=== PATIENT | female | born 1975 | race Caucasian/White ===

== ENCOUNTER → 2016-12-21 | Outpatient (CLI) | payer BC ==
[~2016-12-21] MED LIST: CETI10TA84 PO; CHOL1000 PO; COLC0.6T54 PO; DIPH38TA PO; IBUP-1050 PO; IND/25 PO; OMEP20CA9 PO; PRLSR20 PO; PROM25TA9 PO; VITA100C2 PO; VITA400C3 PO; ZNTT/150 PO
--- NOTE | 2016-12-21 08:21 | DIAGNOSTIC IMAGING REPORT ---
RIGHT HIP 2 VIEWS HISTORY: Right hip pain. COMPARISON: None. FINDINGS: There is no fracture or dislocation. Soft tissues are unremarkable. The visualized pelvic bones are intact. There is lumbar sacral posterior fusion. Spaces are maintained. IMPRESSION: No fractures. Electronically signed by: Eric Lao M.D. 12/21/2016 8:20 AM Dictated Date/Time: 12/21/2016 8:13 AM
== END | disposition home or self-care (01) ==
LOC: C.RAD 07:41
PROVIDERS: ATTEND Family Medicine
DX: M70.61 Trochanteric bursitis, right hip (principal); M25.559 Pain in unspecified hip

== ENCOUNTER 2017-01-29 22:37 | Emergency (ER) | payer BC ==
[~2017-01-29] VITALS: Ht 157.5 cm; Wt 104.4 kg
[~2017-01-29 22:37] MED LIST changes: -CHOL1000 PO; -COLC0.6T54 PO; -DIPH38TA PO; -IBUP-1050 PO; -IND/25 PO; -OMEP20CA9 PO; -PRLSR20 PO; -PROM25TA9 PO; -VITA100C2 PO; -VITA400C3 PO; -ZNTT/150 PO
[2017-01-29 22:44] VITALS: TEMP 36.8; Ht 157.5 cm; Wt 104.4 kg
[2017-01-29] MEDS ORDERED: DIPH38TA PO (23:33)
[2017-01-29] MEDS ORDERED: CHOL1000 PO (23:35)
[2017-01-29] MEDS ORDERED: VITA400C3 PO (23:35)
[2017-01-29] MEDS ORDERED: IBUP-1050 PO (23:36)
[2017-01-29] MEDS ORDERED: LORAZEPAM 2 MG/ML 1 ML VIAL IV STA (23:40)
[2017-01-29] MEDS ORDERED: LABETALOL HCL IV 5 MG/ML 20ML IV STA (23:40)
--- NOTE | 2017-01-29 23:52 | EMERGENCY ROOM VISIT NOTE ---
History Report prepared by Indu: José Miguel Joiner Under the Supervision of: Dr. Ad Naidu M.D. First contact with patient: 23:35 Chief Complaint: HYPERTENSION Stated Complaint: CP,HIGH BP LEFT 140/100, RT 150/96, DIZZY, NAUSEA History of Present Illness The patient is a 41 year old female who presents to the Emergency Room with complaints of persistent chest pains that began at 1800, 6 hours prior to arrival. The patient states that her chest pain intermittently radiates into her upper back. She claims that her pain is worsened with deep inspiration and laying flat. She is also currently complaining of high blood pressure, nausea, and dizziness. She denies any weakness of abdominal pain. The patient does not have a history of hypertension or cardiac disease. She has taken a dosage of Excedrin for her pain. She has had a prior cholecystectomy and hysterectomy. 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 A total of 10 systems reviewed and were otherwise negative. Past Medical & Surgical Medical Problems: (1) Endometriosis (2) GERD (gastroesophageal reflux disease) (3) IBS (irritable bowel syndrome) (4) Kidney stones (5) UTI (urinary tract infection) Surgical Problems: (1) Exploratory laparoscopy (2) History of cholecystectomy (3) History of hysterectomy (4) History of orthopedic surgery Family History FHx: diabetes FHx: heart disease FHx: hypertension Social History Smoking Status: Former Smoker Alcohol Use: none Drug Use: none Marital Status: Housing Status: lives with family Occupation Status: employed Current/Historical Medications Scheduled Cetirizine (Zyrtec), 10 MG PO DAILY Cholecalciferol (Vitamin D3), Unknown Dose PO DAILY Diphenhydramine-Acetaminophen (Excedrin Pm), 1 TAB PO DIRECTED Vitamin E (Vitamin E 400 Iu), 800 INTER.UNIT PO DAILY Scheduled PRN Ibuprofen (Advil), 200-600 MG PO Q4H PRN for Pain or Fever Allergies Coded Allergies: Acetaminophen (Verified Allergy, Unknown, HIVES, 01/29/17) Codeine (Verified Allergy, Unknown, HIVES, 01/29/17) Egg (Verified Allergy, Unknown, HIVES, 01/29/17) Morphine (Verified Allergy, Unknown, HIVES, 01/29/17) Ondansetron (Verified Allergy, Unknown, HIVES, 01/29/17) Oxycodone (Verified Allergy, Unknown, HIVES, 01/29/17) Tuberculin (Verified Allergy, Unknown, RASH, 01/29/17) Physical Exam Vital Signs Date Time Temp Pulse Resp B/P Pulse Ox O2 Delivery O2 Flow Rate FiO2 01/30/17 01:35 63 16 01/30/17 01:30 126/87 01/30/17 01:05 71 22 98 01/30/17 01:00 128/85 01/30/17 00:35 67 26 97 01/30/17 00:30 63 18 138/82 99 01/30/17 00:09 135/86 01/30/17 00:00 62 18 143/95 97 01/29/17 23:56 137/80 01/29/17 23:50 60 01/29/17 23:45 136/79 01/29/17 22:44 36.8 70 16 161/86 98 Room Air Physical Exam GENERAL: Patient is anxious appearing and in no minimal distress. HEENT: No acute trauma, normocephalic atraumatic, mucous membranes moist, no nasal congestion, no scleral icterus. NECK: No stridor, no adenopathy, no meningismus, trachea is midline. LUNGS: No dyspnea. Clear to auscultation and equal bilaterally. No wheeze, no rhonchi. HEART: Regular rate and rhythm. No murmurs, rubs, gallops appreciated. ABDOMEN: Soft, nontender, bowel sounds positive, no masses appreciated, no peritonitis. BACK: No midline tenderness, no CVA tenderness EXTREMITIES: Normal motion all extremities, no cyanosis, no edema. NEUROLOGIC: Alert and oriented, no acute motor or sensory deficits, no focal weakness, cranial nerves grossly intact. SKIN: No rash, no jaundice, no diaphoresis. Medical Decision & Procedures ER Provider Diagnostic Interpretation: CHEST X-RAY: X ray results are stated below per my interpretation: Chest: 1 view: No infiltrate, no effusion, normal cardiac border. Laboratory Results 01/29/17 23:25 01/29/17 23:25 01/30/17 00:46 Test 01/29/17 23:25 01/30/17 00:46 Red Blood Count 4.39 M/uL (4.2-5.4) Mean Corpuscular Volume 91.8 fL (80-100) Mean Corpuscular Hemoglobin 31.4 pg (25-34) Mean Corpuscular Hemoglobin Concent 34.2 g/dl (32-36) RDW Standard Deviation 43.3 fL (36.4-46.3) RDW Coefficient of Variation 12.7 % (11.5-14.5) Mean Platelet Volume 10.9 fL (7.4-10.4) Anion Gap 8.0 mmol/L (3-11) Est Creatinine Clear Calc Drug Dose 111.9 ml/min Estimated GFR () 114.8 Estimated GFR (Non- 99.0 BUN/Creatinine Ratio 20.5 (10-20) Calcium Level 8.7 mg/dl (8.5-10.1) Total Bilirubin 0.4 mg/dl (0.2-1) Alanine Aminotransferase (ALT/SGPT) 30 U/L (12-78) Alkaline Phosphatase 88 U/L (45-117) Creatine Kinase MB 1.2 ng/ml (0.5-3.6) Creatine Kinase MB Ratio (0-3.0) Troponin I < 0.015 ng/ml (0-0.045) Total Protein 7.4 gm/dl (6.4-8.2) Albumin 3.7 gm/dl (3.4-5.0) Globulin 3.7 gm/dl (2.5-4.0) Albumin/Globulin Ratio 1.0 (0.9-2) D-Dimer 380 ug/L FEU (0-500) Aspartate Amino Transf (AST/SGOT) 17 U/L (15-37) Total Creatine Kinase 70 U/L (26-192) Laboratory results as reviewed by me. Medications Administered Medications (Trade) Dose Ordered Sig/Ora Route Start Time Stop Time Status Last Admin Dose Admin Lorazepam (Ativan Inj) 0.5 mg NOW STAT IV 01/29/17 23:40 01/29/17 23:41 DC 01/29/17 23:59 0.5 MG ECG Indication: chest pain Rate (beats per minute): 56 Rhythm: sinus bradycardia Findings: no acute ischemic change, no ectopy ED Course 2336: The patient was evaluated in room B10. A complete history and physical exam was performed. 2340: Ordered Ativan 0.5 mg IV, Labetalol HCl 10 mg IV. 0011: I cancelled the Labetalol prescription at this time. 0135: Reevaluated the patient. Discussed results and discharge instructions. She is feeling much better at this time: she verbalized understanding and agreement. The patient is ready for discharge. Medical Decision Differential: Cardiac Ischemia (STEMI, NSTEMI, Unstable Angina, etc), Aortic Dissection, Arrhythmia, Pulmonary Embolism, Pneumonia, Pneumothorax, MSK, Infectious, Pericarditis/Myocarditis, Esophageal Rupture, Gastrointestinal, amongst other pathologies entertained. 41 yr old female arrives with complaint of left chest pain worse with inspiration and reported HTN at home. Initially HTN though on recheck no longer and thus labetalol cancelled. Ativan for mild anxiety regarding this with good result. EKG clear with negative trop. With ongoing symptoms > 6 hours and negative trop I do not feel this is ACS. With normal dimer I do not feel CT PE study indicated given PERC score. No evidence dissection. No evidence acute infectious etiology. Stable and looks well after several hours. Discharged to home with . Discussed RTED if worsening or other concerns. Stressed importance of PCP follow up to have further evaluation of HTN and symptoms. Impression Primary Impression: Hypertension Additional Impression: Left sided chest pain Scribe Attestation The scribe's documentation has been prepared under my direction and personally reviewed by me in its entirety. I confirm that the note above accurately reflects all work, treatment, procedures, and medical decision making performed by me. Departure Information Dispostion Home / Self-Care Referrals Salome Esquivel M.D. (PCP) Patient Instructions ED Chest Pain Atypical Unkn Cause, My [facility] Additional Instructions Your blood pressure was elevated during this visit. This is quite common in many people who are being evaluated in the Emergency Department for many reasons. However, it is important that you have your Primary Care Provider recheck your blood pressure and discuss whether treatment will be needed. FPC elevated blood pressure can lead to strokes, heart attacks, kidney failure amongst other medical issues. If you develop severe headaches, chest pain, weakness in arms or legs, or other concerning symptoms call 911. Problem Qualifiers Primary Impression: Hypertension Hypertension type: unspecified secondary hypertension Qualified Codes: I15.9 - Secondary hypertension, unspecified
[2017-01-29 23:55] LABS: HEMATOCRIT 40.3 % (37-47); MEAN CELL VOLUME 91.8 fL (80-100); MEAN CORPUSCULAR HEMOGLOBIN 31.4 pg (25-34); MEAN CORPUSCULAR HGB CONC 34.2 g/dl (32-36); MEAN PLATELET VOLUME 10.9 fL (7.4-10.4); PLATELET COUNT 263 K/uL (130-400); RED BLOOD COUNT 4.39 M/uL (4.2-5.4); WHITE BLOOD COUNT 8.92 K/uL (4.8-10.8)
[2017-01-30 00:21] LABS: ALT/SGPT 30 U/L (12-78); BLOOD UREA NITROGEN 15 mg/dl (7-18); BUN/CREATININE RATIO 20.5 (10-20); CALCIUM 8.7 mg/dl (8.5-10.1); CARBON DIOXIDE 20 mmol/L (21-32); CHLORIDE 111 mmol/L (98-107); CREATININE 0.75 mg/dl (0.60-1.20); GLUCOSE 86 mg/dl (70-99); SODIUM 139 mmol/L (136-145)
[2017-01-30 00:27] LABS: ALKALINE PHOSPHATASE 88 U/L (45-117)
[2017-01-30 01:05] VITALS: O2SAT 98
[2017-01-30 01:20] LABS: POTASSIUM 3.8 mmol/L (3.5-5.1)
[2017-01-30 01:30] VITALS: BP 126/87
[2017-01-30 01:35] VITALS: PULSE 63
--- NOTE | 2017-01-30 06:54 | DIAGNOSTIC IMAGING REPORT ---
CHEST ONE VIEW PORTABLE CLINICAL HISTORY: Chest pain/HTN pain COMPARISON STUDY: 02/25/2016 FINDINGS: The bones soft tissues and hemidiaphragms are normal. The cardiomediastinal silhouette is normal. The lungs are clear. The pulmonary vasculature is normal. IMPRESSION: Negative chest. Electronically signed by: Allan Barnes M.D. 01/30/2017 6:53 AM Dictated Date/Time: 01/30/2017 6:53 AM
[2017-04-10] MEDS ORDERED: PRLSR20 PO (08:25)
== END 2017-01-30 01:48 | disposition home or self-care (01) ==
LOC: C.EDB 22:40
DX: I15.9 Secondary hypertension, unspecified (principal); R07.9 Chest pain, unspecified; K21.9 Gastro-esophageal reflux disease without esophagitis; K58.9 Irritable bowel syndrome, unspecified; Z87.442 Personal history of urinary calculi; Z87.440 Personal history of urinary (tract) infections; N80.9 Endometriosis, unspecified; Z83.3 Family history of diabetes mellitus; Z82.49 Family history of ischemic heart disease and other diseases of the circulatory system; Z87.891 Personal history of nicotine dependence; Z79.899 Other long term (current) drug therapy

== ENCOUNTER 2017-03-14 08:36 | Emergency (ER) | payer BC ==
[~2017-03-14] VITALS: Ht 157.5 cm; Wt 103.0 kg
[~2017-03-14 08:36] MED LIST changes: -COLC0.6T54 PO; -IND/25 PO; -OMEP20CA9 PO; -PRLSR20 PO; -PROM25TA9 PO; -VITA100C2 PO; -ZNTT/150 PO
[2017-03-14 08:42] VITALS: O2SAT 98
[2017-03-14 08:43] VITALS: TEMP 36.6; Ht 157.5 cm; Wt 103.0 kg
[2017-03-14] MEDS ORDERED: SODIUM CHLORIDE 0.9% 1000ML 1,000 ML IV STA (08:58)
--- NOTE | 2017-03-14 09:06 | EMERGENCY ROOM VISIT NOTE ---
History First contact with patient: 08:43 Chief Complaint: CHEST PAIN Stated Complaint: CHEST AND ARM PAIN Nursing Triage Summary: Patient presents via wheelchair to the emergency department from radiology Patient was in radiology for an outpatient chest x-ray when she became dizzy and began having chest pain Patient states chest pain began January 29 and has flucuated in intensity since that date States she is taking colchicine for pericarditis (diagnosed by [facility]) and indomethacin She was evaluated by her PCP, Dr. Esquivel, yesterday for dizziness and SOB States chest pain is midsternal and radiates to left arm and back States she is having difficulty taking a deep breath History of Present Illness The patient is a 41 year old female who presents to the Emergency Room with complaints of chest pain. The patient states that her chest pain started at the beginning of last month. She was seen here and had a normal evaluation. She followed up with her family doctor and was diagnosed with pericarditis. She has been taking colchicine and indomethacin. She stated she was starting to feel better until the last several days. She reports nausea, dizziness, upper abdominal pain, chest pain worse with deep inspiration. She has had cholecystectomy in the past. The patient reports nausea. She denies any hematemesis, melena or hematochezia. She denies any diarrhea. She states her father had an NC at age 57. She had an outpatient echocardiogram done since the symptoms started January 29 which was negative. Review of Systems A 10 system review of systems was completed with positives and pertinent negatives listed in the HPI. Past Medical/Surgical History Medical Problems: (1) Endometriosis (2) GERD (gastroesophageal reflux disease) (3) IBS (irritable bowel syndrome) (4) Kidney stones (5) UTI (urinary tract infection) Surgical Problems: (1) Exploratory laparoscopy (2) History of cholecystectomy (3) History of hysterectomy (4) History of orthopedic surgery Family History FHx: diabetes FHx: heart disease FHx: hypertension Social History Smoking Status: Former Smoker Alcohol Use: none Drug Use: none Marital Status: Housing Status: lives with family Occupation Status: employed Current/Historical Medications Scheduled Cetirizine (Zyrtec), 10 MG PO DAILY Cholecalciferol (Vitamin D3), 1,000 UNITS PO DAILY Colchicine (Colchicine), 0.6 MG PO BID Diphenhydramine-Acetaminophen (Excedrin Pm), 1 TAB PO DIRECTED Indomethacin (Indocin), 25 MG PO TID Omeprazole (Prilosec), 20 MG PO BID Vitamin E (Vitamin E 100 Iu), 100 INTER.UNIT PO DAILY Scheduled PRN Ibuprofen (Advil), 200-600 MG PO Q4H PRN for Pain or Fever Allergies Coded Allergies: Codeine (Verified Allergy, Unknown, HIVES, 03/14/17) Egg (Verified Allergy, Unknown, HIVES, 03/14/17) Morphine (Verified Allergy, Unknown, HIVES, 03/14/17) Ondansetron (Verified Allergy, Unknown, HIVES, 03/14/17) Oxycodone (Verified Allergy, Unknown, HIVES, 03/14/17) Sulfamethoxazole w/Trimethoprim (Verified Allergy, Unknown, hives, 03/14/17 ) Tuberculin (Verified Allergy, Unknown, RASH, 03/14/17) Physical Exam Vital Signs Date Time Temp Pulse Resp B/P (MAP) Pulse Ox O2 Delivery O2 Flow Rate FiO2 03/14/17 14:42 67 16 123/82 100 03/14/17 13:12 80 140/93 100 Room Air 03/14/17 11:53 66 111/79 100 Room Air 03/14/17 11:26 60 16 123/73 100 Room Air 03/14/17 09:59 65 20 133/81 100 Room Air 03/14/17 08:52 58 03/14/17 08:45 Room Air 03/14/17 08:43 36.6 61 20 153/98 98 Room Air 03/14/17 08:42 98 Room Air Physical Exam VITALS: Vitals are noted on the nurse's note and reviewed by myself. Vital signs stable. GENERAL: This is a 41-year-old female, in no acute distress, nondiaphoretic, well-developed well-nourished. SKIN: The skin was without rashes, erythema, edema, or bruising. There is no tenting of the skin. Capillary reflex less than 2 seconds. HEAD: Normocephalic atraumatic. EARS: External auditory canals clear, tympanic membranes pearly yan without erythema or effusion bilaterally. EYES: Pupils equal round and reactive to light and accommodation. Conjunctivae without injection, sclerae without icterus. Extraocular movements intact. NOSE: Patent, turbinates without inflammation or discharge. MOUTH: Mucous membranes moist. Tonsils are not enlarged. Pharynx without erythema or exudate. Uvula midline. Airway patent. Tongue does not deviate. NECK: Supple without nuchal rigidity. No lymphadenopathy. No thyromegaly. Cervical spine is nontender. No JVD. HEART: Regular rate and rhythm without murmurs gallops or rubs. LUNGS: Clear to auscultation bilaterally without wheezes, rales or rhonchi. No retractions or accessory muscle use. ABDOMEN: Positive bowel sounds x 4. Soft, mild upper abdominal tenderness, without masses or organomegaly. MUSCULOSKELETAL: No muscle atrophy, erythema, or edema noted. Full range of motion in all extremities. Normal gait. Strength 5/5 throughout. NEURO: Patient was alert and oriented to person place and time. No focal neurological deficits. Medical Decision & Procedures ER Provider Diagnostic Interpretation: CHEST 2 VIEWS ROUTINE HISTORY: Short of breath. COMPARISON: Chest 01/29/2017. FINDINGS: The lungs are clear. Cardiac silhouette is normal in size. No pleural effusions. No pneumothorax. IMPRESSION: No acute process. Laboratory Results 03/14/17 08:55 Red Blood Count 4.59, Mean Corpuscular Volume 90.0, Mean Corpuscular Hemoglobin 29.6, Mean Corpuscular Hemoglobin Concent 32.9, Mean Platelet Volume 10.5, Neutrophils (%) (Auto) 54.2, Lymphocytes (%) (Auto) 26.7, Monocytes (%) (Auto) 9.7, Eosinophils (%) (Auto) 8.6, Basophils (%) (Auto) 0.5, Neutrophils # (Auto) 3.48, Lymphocytes # (Auto) 1.71, Monocytes # (Auto) 0.62, Eosinophils # (Auto) 0.55, Basophils # (Auto) 0.03 03/14/17 08:55 Test 03/14/17 00:00 03/14/17 08:55 03/14/17 10:30 Urine Color YELLOW Urine Appearance CLEAR (CLEAR) Urine pH 5.5 (4.5-7.5) Urine Specific [place] 1.010 (1.000-1.030) Urine Protein NEG (NEG) Urine Glucose (UA) NEG (NEG) Urine Ketones NEG (NEG) Urine Occult Blood NEG (NEG) Urine Nitrite NEG (NEG) Urine Bilirubin NEG (NEG) Urine Urobilinogen NEG (NEG) Urine Leukocyte Esterase NEG (NEG) White Blood Count 6.41 K/uL (4.8-10.8) Red Blood Count 4.59 M/uL (4.2-5.4) Hemoglobin 13.6 g/dL (12.0-16.0) Hematocrit 41.3 % (37-47) Mean Corpuscular Volume 90.0 fL (80-100) Mean Corpuscular Hemoglobin 29.6 pg (25-34) Mean Corpuscular Hemoglobin Concent 32.9 g/dl (32-36) Platelet Count 264 K/uL (130-400) Mean Platelet Volume 10.5 fL (7.4-10.4) Neutrophils (%) (Auto) 54.2 % Lymphocytes (%) (Auto) 26.7 % Monocytes (%) (Auto) 9.7 % Eosinophils (%) (Auto) 8.6 % Basophils (%) (Auto) 0.5 % Neutrophils # (Auto) 3.48 K/uL (1.4-6.5) Lymphocytes # (Auto) 1.71 K/uL (1.2-3.4) Monocytes # (Auto) 0.62 K/uL (0.11-0.59) Eosinophils # (Auto) 0.55 K/uL (0-0.5) Basophils # (Auto) 0.03 K/uL (0-0.2) RDW Standard Deviation 39.9 fL (36.4-46.3) RDW Coefficient of Variation 12.2 % (11.5-14.5) Immature Granulocyte % (Auto) 0.3 % Immature Granulocyte # (Auto) 0.02 K/uL (0.00-0.02) Erythrocyte Sedimentation Rate 2 mm/hr (0-21) Prothrombin Time 9.9 SECONDS (9.0-12.0) Prothromb Time International Ratio 0.9 (0.9-1.1) Activated Partial Thromboplast Time 24.0 SECONDS (21.0-31.0) Partial Thromboplastin Ratio 0.9 D-Dimer 210 ug/L FEU (0-500) Anion Gap 8.0 mmol/L (3-11) Est Creatinine Clear Calc Drug Dose 99.2 ml/min Estimated GFR () 100.1 Estimated GFR (Non- 86.3 BUN/Creatinine Ratio 17.3 (10-20) Calcium Level 9.0 mg/dl (8.5-10.1) Total Bilirubin 0.3 mg/dl (0.2-1) Aspartate Amino Transf (AST/SGOT) 21 U/L (15-37) Alanine Aminotransferase (ALT/SGPT) 41 U/L (12-78) Alkaline Phosphatase 77 U/L (45-117) Total Creatine Kinase 52 U/L (26-192) Creatine Kinase MB 1.0 ng/ml (0.5-3.6) Creatine Kinase MB Ratio 1.9 (0-3.0) C-Reactive Protein < 0.29 mg/dl (0-0.29) Total Protein 6.9 gm/dl (6.4-8.2) Albumin 3.7 gm/dl (3.4-5.0) Globulin 3.2 gm/dl (2.5-4.0) Albumin/Globulin Ratio 1.2 (0.9-2) Lipase 162 U/L (73-393) Troponin I < 0.015 ng/ml (0-0.045) Medications Administered Medications (Trade) Dose Ordered Sig/Ora Route Start Time Stop Time Status Last Admin Dose Admin Sodium Chloride 1,000 ml @ 999 mls/hr Q1H1M STAT IV 03/14/17 08:58 03/14/17 09:58 DC 03/14/17 09:06 999 MLS/HR Al Hydroxide/Mg Hydroxide (Maalox Susp) 30 ml STK-MED ONCE .ROUTE 03/14/17 14:07 03/14/17 14:08 DC 03/14/17 14:09 30 ML Lidocaine HCl (Viscous Lidocaine 2% Soln) 20 ml STK-MED ONCE .ROUTE 03/14/17 14:08 03/14/17 14:09 DC 03/14/17 14:10 20 ML Procedure The patient was monitored on a rim fire priming operator. They maintained a normal sinus rhythm without ectopy. ECG Indication: chest pain Rate (beats per minute): 62 Rhythm: normal sinus Findings: no acute ischemic change Change: no significant change ED Course The patient was seen and examined. Previous visits were reviewed. The patient does not have a fever or leukocytosis. She does not have any significant electrolyte abnormalities. She is not anemic. Sedimentation rate and CRP are not elevated. Initial and repeat 2 hour troponin were negative. ESR and sedimentation rate were not elevated. Lipase was not elevated. D-dimer was not elevated. Urinalysis was negative. Chest x-ray that was done just prior to arrival in the emergency department was negative The patient presents to the emergency department with 1.5 months of sharp chest pain. The patient has difficulty describing her chest pain. She states that it feels sharp and is often worse with deep inspiration. She states that she sleeps propped up with pillows because the pain seems to be more significant at night or when laying down. I do not hear a friction rub. Her EKG does not reveal any acute abnormality. Sedimentation rate and CRP are not elevated. She has been taking colchicine and indomethacin without any improvement in her pain. It is possible that this represents a gastritis or GERD or potentially pulmonary etiology and not truly pericarditis. There does seem to be an underlying component of anxiety as well. I initially discussed the case with Dr. Calvin. Given that the patient has had the more intense pain since yesterday morning and definitely worse since last night greater than 6 hours with 2 negative troponins, she underwent stress test. The patient was not able to complete the entire study. She became very short of breath and also very tearful. Dr. Calvin suggested having her follow with Dr. Moore who has been informally involved in the case through her PCP and possibly admitting her to the hospital. I spoke with the hospitalist service, Dr. Gutierrez who recommends speaking with Dr. Pack. I was able to speak with him and he recommends a follow-up with rheumatology to evaluate for possible underlying etiology prior to starting steroids if this does indeed seem to be refractory pericarditis. After discussion with the cardiologists and the hospitalist service, it is felt that the patient could continue with outpatient evaluation and management. The patient is very taking Prilosec. She states she stopped taking Zantac 2 days ago. This also seems to be when her pain worsened. She should start the Zantac again and take in addition to the Prilosec. She should return to the ER with any worsening symptoms. The case was discussed with Dr. Ramirez who agrees with the assessment and management plan. Medical Decision DIFFERENTIAL DIAGNOSIS: Aortic dissection, myocarditis, pericarditis, cervical disc disease, costochondritis, herpes zoster, rib fracture, pleuritis, pneumonia , pulmonary embolus, tension pneumothorax, anxiety disorder, somatoform disorder , choledocholithiasis, status, esophagitis, esophageal spasm, esophageal reflux , esophageal rupture, pancreatitis, peptic ulcer disease, cardiac ischemia, ST elevation NC, acute coronary syndrome, arrhythmia, coronary artery vasospasm. vavular heart disease, coronary artery disease, among others. Impression Primary Impression: Left sided chest pain Additional Impression: Upper abdominal pain Departure Information Dispostion Home / Self-Care Condition GOOD Referrals Salome Esquivel M.D. (PCP) Patient Instructions ED Chest Pain Costochondritis, ED Gastritis, My [facility] Additional Instructions Continue the Prilosec Also take Zantac 150 mg every 12 hours Follow-up with rheumatology as scheduled Follow-up with your family doctor in the next several days Follow-up with cardiology Return with any worsening pain, trouble breathing, fevers Problem Qualifiers
[2017-03-14 09:09] LABS: BASO % 0.5 %; BASO ABS # 0.03 K/uL (0-0.2); COMPLETE YES; EOS % 8.6 %; HEMATOCRIT 41.3 % (37-47); IG% 0.3 %; LYMPH % 26.7 %; LYMPH ABS # 1.71 K/uL (1.2-3.4); MEAN CORPUSCULAR HEMOGLOBIN 29.6 pg (25-34); MEAN CORPUSCULAR HGB CONC 32.9 g/dl (32-36); MEAN PLATELET VOLUME 10.5 fL (7.4-10.4); MONO % 9.7 %; NEUT % 54.2 %; PLATELET COUNT 264 K/uL (130-400); RED BLOOD COUNT 4.59 M/uL (4.2-5.4); WHITE BLOOD COUNT 6.41 K/uL (4.8-10.8)
[2017-03-14 09:25] LABS: ALT/SGPT 41 U/L (12-78); BLOOD UREA NITROGEN 15 mg/dl (7-18); BUN/CREATININE RATIO 17.3 (10-20); C-REACTIVE PROTEIN < 0.29 mg/dl (0-0.29); CARBON DIOXIDE 24 mmol/L (21-32); CHLORIDE 110 mmol/L (98-107); CREATININE 0.84 mg/dl (0.60-1.20); GLUCOSE 95 mg/dl (70-99); POTASSIUM 3.9 mmol/L (3.5-5.1); SODIUM 142 mmol/L (136-145)
[2017-03-14] MEDS ORDERED: VITA100C2 PO (09:25)
[2017-03-14] MEDS ORDERED: OMEP20CA9 PO (09:25)
[2017-03-14] MEDS ORDERED: IND/25 PO (09:25)
[2017-03-14] MEDS ORDERED: COLC0.6T54 PO (09:25)
[2017-03-14 09:28] LABS: INR 0.9 (0.9-1.1); PARTIAL THROMBOPLASTIN RATIO 0.9; PROTHROMBIN TIME (PATIENT) 9.9 SECONDS (9.0-12.0)
[2017-03-14 09:30] LABS: ALB/GLOB RATIO 1.2 (0.9-2); ALKALINE PHOSPHATASE 77 U/L (45-117); AST/SGOT 21 U/L (15-37); CKMB/CK RATIO 1.9 (0-3.0)
[2017-03-14 10:52] LABS: URINE APPEARANCE CLEAR (CLEAR); URINE BILIRUBIN NEG (NEG); URINE COLOR YELLOW; URINE NITRITE NEG (NEG); URINE PH 5.5 (4.5-7.5); UROBILINOGEN NEG (NEG); ZZUR CULT IF INDIC CLEAN CATCH NO
[2017-03-14 11:33] LABS: MANUAL MICROSCOPIC REQUIRED? NO; REVIEW REQ? NO
[2017-03-14] MEDS ORDERED: GI COCKTAIL PO STA (13:54)
--- NOTE | 2017-03-14 14:02 | EXERCISE STRESS ECHO ---
*NOTICE TO RECEIVING REPUBLICAN AGENCY This information is strictly Confidential and protected under [place] law. [place] law prohibits you from making any further disclosure of this information unless further disclosure is expressly permitted by the written consent of the person to whom it pertains or is authorized by law. A general authorization for the release of medical or other information is not sufficient for this purpose. Hospital accepts no responsibility if the information is made available to any other person, INCLUDING THE PATIENT. Interpretation Summary * Name: SOFIA SOLARES Study Date: 03/14/2017 11:54 AM BP: 140/81 mmHg * Patient Location: [facility] HR: 65 * : 1975 (M/d/yyyy) Gender: Female Height: 62 in * Age: 41 yrs Ethnicity: [place] Weight: 227 lb * Ordering Physician: Gita Sheikh * Referring Physician: Self, Referred * Performed By: Salome Leach RCS * * Reason For Study: CHEST PAIN * BSA: 2.0 m2 * -- Conclusions -- * Stress Echo: * 1. No inducible ischemic changes noted at 76% MPHR. Cannot rule out ischemic changes at faster heart rates. Target heart rate was not achieved. * 2. Nondiagnostic exercise ECG as target heart rate was not attained. * 3. Pleuritic chest pain was reported prior to the procedure and worsened with escalating exercise and heavier breathing. She asked to stop prior to reaching target heart rate. * 4. No arrhythmia. * 5. Appropriate blood pressure response to exercise. * 6. Poor exercise tolerance due to chest discomfort as described above. * ECHO: * 1. Normal left ventricular size and systolic function. EF 55-60%. No regional wall motion abnormalities. No left ventricular hypertrophy. * 2. Limited color and limited spectral Doppler also performed with limited 2D echo images. * 3. Normal estimated right ventricular systolic pressure, assuming a right atrial pressure of 3; RVSP 25mmHg. Procedure Details * ECHOEX, CPT #[id number] * Limited 2D images with limited color Doppler and limited spectral Doppler performed as well as stress echo images. Left Ventricle * The left ventricle is normal in size. * There is normal left ventricular wall thickness. * Left ventricular systolic function is normal. * The left ventricular ejection fraction increases normally with stress. The left ventricular end-systolic cavity size reduces post-stress (normal response). The left ventricular wall motion with stress is normal. * Resting wall motion: Normal. Stress wall motion: Appropriate increase in Left ventricular systolic function and decrease in cavity size. No stress induced segmental wall motion abnormalities. Right Ventricle * Right ventricle not fully visualized but may be mildly dilated. Atria * The left atrial size is normal. * Right atrial size is normal. Mitral Valve * The mitral valve is grossly normal. Tricuspid Valve * The tricuspid valve is not well visualized. Aortic Valve * The aortic valve is trileaflet. * The aortic valve is normal in structure and function. * No hemodynamically significant valvular aortic stenosis. * No aortic regurgitation is present. Pulmonic Valve * The pulmonic valve is not well visualized. Great Vessels * The aortic root is normal size. * Ascending aorta of normal dimension * Aortic arch of normal dimension. Pericardium * There is no pericardial effusion. Stress Parameters * Sinus bradycardia 59 bpm. * Stress ECG: No ST changes. No arrhythmias. * No arrhythmia were noted with stress. * The stress portion of this study was personally supervised by the undersigned interpreting physician. * Rest heart rate was '65' BPM. * Rest blood pressure was '140/81' * Maximum heart rate achieved was 137 bpm. * Maximum heart rate was 76 % of maximum age-predicted heart rate. * Maximum blood pressure was '160/78' * Total exercise time was '04:14' * Maximum exercise MET level achieved was '6.00' METS * Maximum treadmill speed was '2.50' miles per hour. * Maximum treadmill elevation was '12.00'% grade. * Exercise was stopped due to chest pain. * Normal blood pressure response to exercise. MMode 2D Measurements and Calculations IVSd 0.85 cm IVSs 1.3 cm LVIDd 4.5 cm LVIDs 3.2 cm LVPWd 0.99 cm LVPWs 1.7 cm IVS/LVPW 0.86 FS 29.0 % EDV(Teich) 93.3 ml ESV(Teich) 41.3 ml EF(Teich) 55.8 % EDV(cubed) 92.3 ml ESV(cubed) 33.1 ml EF(cubed) 64.2 % % IVS thick 51.5 % % LVPW thick 69.4 % LV mass(C)d 137.6 grams LV mass(C)dI 68.2 grams/m\S\2 LV mass(C)s 168.7 grams LV mass(C)sI 83.6 grams/m\S\2 SV(Teich) 52.1 ml SI(Teich) 25.8 ml/m\S\2 SV(cubed) 59.2 ml SI(cubed) 29.4 ml/m\S\2 Ao root diam 3.2 cm Ao root area 8.2 cm\S\2 LA dimension 3.4 cm asc Aorta Diam 3.1 cm LA/Ao 1.0 LVOT diam 2.0 cm LVOT area 3.1 cm\S\2 Doppler Measurements and Calculations LV V1 max PG 4.3 mmHg LV V1 max 103.5 cm/sec TR max burton 233.1 cm/sec
[2017-03-14] MEDS ORDERED: ALUMINUM/MAGNESIUM SUSP 30 ML UDC ONE (14:07)
[2017-03-14] MEDS ORDERED: LIDOCAINE HCL 2% VISC SOLN 20 ML UDC ONE (14:08)
[2017-03-14 14:42] VITALS: BP 123/82; PULSE 67; O2SAT 100
[2017-04-10] MEDS ORDERED: PRLSR20 PO (08:25)
== END 2017-03-14 14:43 | disposition home or self-care (01) ==
LOC: C.EDB 08:38 → C.EDA 14:43
DX: R07.9 Chest pain, unspecified (principal); R10.10 Upper abdominal pain, unspecified; R11.0 Nausea; K21.9 Gastro-esophageal reflux disease without esophagitis; I25.2 Old myocardial infarction; Z87.442 Personal history of urinary calculi; Z87.440 Personal history of urinary (tract) infections; Z90.49 Acquired absence of other specified parts of digestive tract; Z90.710 Acquired absence of both cervix and uterus; Z98.890 Other specified postprocedural states; Z79.899 Other long term (current) drug therapy

== ENCOUNTER → 2017-03-14 | Outpatient (CLI) | payer BC ==
[~2017-03-14] MED LIST changes: +CHOL1000 PO; +COLC0.6T54 PO; +DIPH38TA PO; +IBUP-1050 PO; +IND/25 PO; +OMEP20CA9 PO; +PRLSR20 PO; +PROM25TA9 PO; +VITA100C2 PO; +VITA400C3 PO; +ZNTT/150 PO
--- NOTE | 2017-03-14 08:43 | DIAGNOSTIC IMAGING REPORT ---
CHEST 2 VIEWS ROUTINE HISTORY: Short of breath. COMPARISON: Chest 01/29/2017. FINDINGS: The lungs are clear. Cardiac silhouette is normal in size. No pleural effusions. No pneumothorax. IMPRESSION: No acute process. Electronically signed by: Eric Lao M.D. 03/14/2017 8:42 AM Dictated Date/Time: 03/14/2017 8:39 AM
== END | disposition home or self-care (01) ==
LOC: C.RAD 08:12
PROVIDERS: ATTEND Physician Assistant
DX: R07.81 Pleurodynia (principal); R06.02 Shortness of breath

== ENCOUNTER → 2017-03-31 | Outpatient (CLI) | payer BC ==
[~2017-03-31] MED LIST changes: +COLC0.6T54 PO; +IND/25 PO; +OMEP20CA9 PO; +PRLSR20 PO; +PROM25TA9 PO; +VITA100C2 PO; -VITA400C3 PO; +ZNTT/150 PO
--- NOTE | 2017-03-31 11:21 | DIAGNOSTIC IMAGING REPORT ---
CHEST 2 VIEWS ROUTINE CLINICAL HISTORY: Chest pain, cough and fever. COMPARISON STUDY: Chest radiograph March 14, 2017. FINDINGS: Lung volumes are normal. There is no pneumothorax or pleural effusion. Lungs are clear. Cardiac size is within normal limits. There is no evidence of pulmonary edema. There are cholecystectomy clips. The appearance of the chest is unchanged. IMPRESSION: No acute cardiopulmonary findings. Electronically signed by: Fredrick Shearer M.D. 03/31/2017 11:20 AM Dictated Date/Time: 03/31/2017 11:19 AM
[2017-03-31 11:36] LABS: BASO % 0.1 %; BASO ABS # 0.02 K/uL (0-0.2); COMPLETE YES; EOS % 0.2 %; HEMATOCRIT 45.1 % (37-47); IG% 0.4 %; LYMPH % 16.7 %; LYMPH ABS # 2.85 K/uL (1.2-3.4); MEAN CELL VOLUME 93.8 fL (80-100); MEAN CORPUSCULAR HEMOGLOBIN 31.2 pg (25-34); MEAN CORPUSCULAR HGB CONC 33.3 g/dl (32-36); MEAN PLATELET VOLUME 10.8 fL (7.4-10.4); NEUT % 76.6 %; PLATELET COUNT 273 K/uL (130-400); RED BLOOD COUNT 4.81 M/uL (4.2-5.4); WHITE BLOOD COUNT 17.04 K/uL (4.8-10.8)
== END | disposition home or self-care (01) ==
LOC: C.RAD 10:25
PROVIDERS: ATTEND Family Medicine
DX: R59.0 Localized enlarged lymph nodes (principal); Z11.4 Encounter for screening for human immunodeficiency virus [HIV]

== ENCOUNTER → 2017-04-01 | Outpatient (CLI) | payer BC ==
[2017-04-01 13:52] LABS: ALB/GLOB RATIO 1.1 (0.9-2); ALKALINE PHOSPHATASE 85 U/L (45-117); ALT/SGPT 43 U/L (12-78); AST/SGOT 16 U/L (15-37); BLOOD UREA NITROGEN 13 mg/dl (7-18); BUN/CREATININE RATIO 16.7 (10-20); C-REACTIVE PROTEIN < 0.29 mg/dl (0-0.29); CARBON DIOXIDE 23 mmol/L (21-32); CHLORIDE 107 mmol/L (98-107); CREATININE 0.79 mg/dl (0.60-1.20); GLUCOSE 103 mg/dl (70-99); POTASSIUM 4.1 mmol/L (3.5-5.1); SODIUM 139 mmol/L (136-145)
--- NOTE | 2017-04-01 13:52 | DIAGNOSTIC IMAGING REPORT ---
CT SCAN OF THE ABDOMEN AND PELVIS WITHOUT IV CONTRAST CLINICAL HISTORY: Nausea. Generalized abdominal pain. COMPARISON STUDY: Abdominal CT dated 07/24/2015. TECHNIQUE: CT scan of the abdomen and pelvis is performed from the lung bases to the proximal femora. Images are reviewed in the axial, sagittal, and coronal planes. IV contrast was not administered for this examination as per the referring clinician. Note that the examination was performed in significantly suboptimal fashion without oral and IV contrast. Automated dose control exposure was utilized. CT DOSE: 1136.25 mGy.cm FINDINGS: Lung bases: The heart is normal in size and without pericardial effusion. The lung bases are clear noting minimal dependent atelectasis. Liver: The unenhanced liver is normal in size, contour, and attenuation. There is no intrahepatic biliary ductal dilatation. Gallbladder: Surgically absent noting clips in the gallbladder fossa. Spleen: Normal in size and attenuation. Pancreas: Unremarkable. Adrenal glands: Unremarkable. Kidneys: The unenhanced kidneys are normal in size and without hydronephrosis. There are no renal calculi identified. There is no evidence of contour deforming renal mass lesion. Abdominal vasculature: The abdominal aorta is normal in course and caliber. Bowel: The small bowel and colon are normal in course and caliber. The appendix is well-visualized and normal. Peritoneum: There is no intraperitoneal free air or abdominal ascites. Lymphadenopathy: None. Pelvic viscera: The bladder is normal as visualized. The uterus is surgically absent. No adnexal lesion is seen. Small ovarian follicles are incidentally noted. Skeletal structures: No lytic or blastic lesions are seen. There are postoperative changes from L4 to S1 spinal fusion. IMPRESSION: 1. Suboptimal examination without oral and IV contrast. 2. There are no acute infectious or inflammatory findings in the abdomen or pelvis. Electronically signed by: Alverto Villela M.D. 04/01/2017 1:51 PM Dictated Date/Time: 04/01/2017 1:46 PM
== END | disposition home or self-care (01) ==
LOC: C.CTS 12:34
PROVIDERS: ATTEND Family Medicine
DX: R10.9 Unspecified abdominal pain (principal); R11.0 Nausea; R50.9 Fever, unspecified

== ENCOUNTER 2017-04-02 09:43 | Emergency (ER) | payer BC ==
[~2017-04-02] VITALS: Ht 157.5 cm; Wt 99.8 kg
[~2017-04-02 09:43] MED LIST changes: -PRLSR20 PO; -PROM25TA9 PO; -ZNTT/150 PO
[2017-04-02 09:49] VITALS: TEMP 36.8; Ht 157.5 cm; Wt 99.8 kg
[2017-04-02] MEDS ORDERED: ZNTT/150 PO (10:28)
[2017-04-02] MEDS ORDERED: SODIUM CHLORIDE 0.9% 1000ML 1,000 ML IV STA ×2 (10:45)
[2017-04-02] MEDS ORDERED: HYDROmorphone INJ 1 MG/ML SYR IV STA (11:12)
[2017-04-02] MEDS ORDERED: PROMETHAZINE HCL INJ 12.5 MG in SODIUM CHLORIDE 0.9% 50ML 50 ML IV STA (11:12)
[2017-04-02 11:18] LABS: BASO % 0.1 %; BASO ABS # 0.01 K/uL (0-0.2); COMPLETE YES; EOS % 0.3 %; HEMATOCRIT 43.6 % (37-47); IG% 0.5 %; LYMPH % 14.3 %; LYMPH ABS # 1.42 K/uL (1.2-3.4); MEAN CELL VOLUME 92.6 fL (80-100); MEAN CORPUSCULAR HEMOGLOBIN 30.4 pg (25-34); MEAN CORPUSCULAR HGB CONC 32.8 g/dl (32-36); MEAN PLATELET VOLUME 10.2 fL (7.4-10.4); NEUT % 80.8 %; PLATELET COUNT 261 K/uL (130-400); RED BLOOD COUNT 4.71 M/uL (4.2-5.4); WHITE BLOOD COUNT 9.92 K/uL (4.8-10.8)
[2017-04-02 11:21] LABS: URINE APPEARANCE CLEAR (CLEAR); URINE BILIRUBIN NEG (NEG); URINE COLOR YELLOW; URINE NITRITE NEG (NEG); URINE SPECIFIC GRAVITY 1.012 (1.000-1.030); UROBILINOGEN NEG (NEG)
[2017-04-02 11:29] LABS: MANUAL MICROSCOPIC REQUIRED? NO; REVIEW REQ? NO
[2017-04-02 11:33] LABS: BUN/CREATININE RATIO 10.4 (10-20); CREATININE 0.88 mg/dl (0.60-1.20); POTASSIUM 3.7 mmol/L (3.5-5.1)
[2017-04-02] MEDS ORDERED: OPTIRAY 320 IV PRN (13:15)
--- NOTE | 2017-04-02 13:15 | DIAGNOSTIC IMAGING REPORT ---
CT ABD/PELVIS IV CONTRAST ONLY CLINICAL HISTORY: RIGHT ABD PAIN, FEVERS COMPARISON STUDY: 04/01/2017 TECHNIQUE: Following the IV administration of 91 mL of Optiray-320, CT scan of the abdomen and pelvis was performed from the lung bases to the proximal femurs. Images are reviewed in the axial, sagittal, and coronal planes. IV contrast was administered without complication. CT DOSE: 1029.23 mGy.cm FINDINGS: Lower chest: The heart is normal in size and configuration, without pericardial effusion. The lung bases and pleural spaces are clear. Liver: The contrast-enhanced liver is normal in size, contour, and attenuation. There is no intrahepatic biliary ductal dilatation. The hepatic veins and portal veins are patent. The common bile duct measures 9 mm. Gallbladder: Surgically absent Spleen: Normal in size and attenuation. Pancreas: Unremarkable. Adrenal glands: Unremarkable. Kidneys: There is a 7 mm left renal hypodensity likely representing a cyst. Bowel: There are no transition zone to indicate bowel obstruction. There is no evidence of acute diverticulitis. There are no findings to indicate acute appendicitis. There is borderline bowel wall thickening involving the descending colon Peritoneum: There is no intraperitoneal free air or abdominal ascites. Vasculature: The abdominal aorta is normal in course and caliber. Adenopathy: None. Pelvic viscera: The patient is status post a prior hysterectomy. Skeletal structures: There are postsurgical changes present within the lumbar spine IMPRESSION: 1. No evidence of bowel obstruction. No evidence of free air 2. No evidence of acute diverticulitis. No evidence of acute appendicitis 3. Surgically absent gallbladder and uterus 4. Postsurgical changes involving the lumbar spine 5. Borderline bowel wall thickening involving the descending colon Electronically signed by: Biju Ignacio M.D. 04/02/2017 1:13 PM Dictated Date/Time: 04/02/2017 1:06 PM
[2017-04-02] MEDS ORDERED: PROM25TA9 PO (14:15)
--- NOTE | 2017-04-02 14:16 | EMERGENCY ROOM VISIT NOTE ---
History First contact with patient: 10:17 Chief Complaint: REFERRED BY DOCTOR Stated Complaint: ABD PAIN, CP, FEVER, ROBLES, WBC-SENT BY DR. SANCHES History of Present Illness Patient is a 41-year-old white female who presents to the emergency department for evaluation of abdominal pain and fever. Patient was seen at the walk-in clinic at [facility] over the weekend for similar symptoms. Patient reports that she developed a intermittent fever, low grade over the last week. Temperature max was 100.8F orally, and responded to acetaminophen. She also noted nausea without vomiting, anorexia, and in her life fatigue and weakness. She developed right-sided abdominal pain 2 days ago. She states this started in the right upper abdomen, and she now feels it more in the right mid abdomen radiating toward the umbilicus and epigastric region. She describes it as an aching sensation and can occasionally be, sharp. She reports that standing makes her pain better. She has a history of IBS, and was feeling a little bit constipated so 8 prunes, and subsequently had 3 loose bowel movements yesterday and 2 today. She denies any melena or hematochezia. Historically, the patient also has a history of pericarditis, and has been on prednisone and colchicine for about 2-1/2 weeks. She reports that her chest pain symptoms are improving. She was seen at the weekend clinic 2 days ago, and had laboratory studies and a CT scan performed. Her white count was elevated at over 17,000, however a CT scan was performed yesterday and was negative. Given the leukocytosis, she was referred to the emergency department for further care and evaluation. The patient is also status post cholecystectomy, and hysterectomy with right salpingo-oophorectomy. Review of Systems Review of systems as per HPI. All other systems reviewed were negative. 10 systems reviewed. Past Medical/Surgical History Medical Problems: (1) Acute abdominal pain (2) Acute abdominal pain (3) Acute abdominal pain (4) Diarrhea (5) Endometriosis (6) Essential (Primary) Hypertension (7) GERD (gastroesophageal reflux disease) (8) Hypertension (9) IBS (irritable bowel syndrome) (10) Kidney stones (11) Left sided chest pain (12) Left sided chest pain (13) Lower abdominal pain (14) Lumbar disc herniation with radiculopathy (15) Lumbar stenosis with neurogenic claudication (16) Mastitis in female (17) Pericarditis (18) Right-sided chest wall pain (19) Upper abdominal pain (20) UTI (urinary tract infection) (21) Vomiting Surgical Problems: (1) Exploratory laparoscopy (2) History of cholecystectomy (3) History of hysterectomy (4) History of orthopedic surgery Electronic medical records are reviewed and summarized as above/below. See Problem List. Family History FHx: diabetes FHx: heart disease FHx: hypertension Social History Smoking Status: Former Smoker Alcohol Use: none Drug Use: none Marital Status: Housing Status: lives with family Occupation Status: employed Current/Historical Medications Scheduled Cetirizine (Zyrtec), 10 MG PO DAILY Cholecalciferol (Vitamin D3), 1,000 UNITS PO DAILY Colchicine (Colchicine), 0.6 MG PO BID Diphenhydramine-Acetaminophen (Excedrin Pm), 1 TAB PO DIRECTED Ranitidine (Zantac), 150 MG PO BID Vitamin E (Vitamin E 100 Iu), 100 INTER.UNIT PO DAILY Scheduled PRN Promethazine Hcl (Phenergan), 25 MG PO Q6H PRN for Nausea Allergies Coded Allergies: Codeine (Verified Allergy, Unknown, HIVES, 03/14/17) Egg (Verified Allergy, Unknown, HIVES, 03/14/17) Morphine (Verified Allergy, Unknown, HIVES, 03/14/17) Ondansetron (Verified Allergy, Unknown, HIVES, 03/14/17) Oxycodone (Verified Allergy, Unknown, HIVES, 03/14/17) Sulfamethoxazole w/Trimethoprim (Verified Allergy, Unknown, hives, 03/14/17 ) Tuberculin (Verified Allergy, Unknown, RASH, 03/14/17) Physical Exam Vital Signs Date Time Temp Pulse Resp B/P (MAP) Pulse Ox O2 Delivery O2 Flow Rate FiO2 04/02/17 14:51 59 114/85 94 04/02/17 12:30 82 134/83 94 04/02/17 11:36 79 125/81 98 Room Air 04/02/17 09:49 36.8 70 18 135/93 98 Room Air Physical Exam CONSTITUTIONAL: Patient is an obese, uncomfortable appearing 41-year-old white female who is awake and alert and in mild distress due to her abdominal pain. EYES: Pupils equal, round, reactive to light and accommodation. EOMs intact without nystagmus. Sclera are anicteric. ENT: Tympanic membranes intact, with normal landmarks. External canals are clear. Oral and nasopharynx are clear. Mucous membranes are moist, no lesions , tongue and gums appear normal. NECK: No bruits auscultated. Supple without lymphadenopathy. No thyromegaly. No meningeal signs. Full active range of motion without discomfort. CARDIOVASCULAR: Regular rate and rhythm, with normal S1 and S2, no murmur or gallop or rub is heard. No carotid bruits auscultated. No JVD. Peripheral pulses easily palpable. RESPIRATORY: Breath sounds equal and clear to auscultation without wheezes, rales, or rhonchi heard. Full and equal chest expansion without accessory muscle use or retractions. ABDOMEN: Well-healed surgical scars are noted. Abdomen is soft, nondistended, tender to palpation in the right mid abdomen, without guarding or rigidity. She does have some rebound and referred rebound tenderness however. INTEGUMENTARY: No lesions or rash, normal skin turgor. LYMPH: No lymphadenopathy. Medical Decision & Procedures ER Provider Diagnostic Interpretation: CT ABD/PELVIS IV CONTRAST ONLY CLINICAL HISTORY: RIGHT ABD PAIN, FEVERS COMPARISON STUDY: 04/01/2017 TECHNIQUE: Following the IV administration of 91 mL of Optiray-320, CT scan of the abdomen and pelvis was performed from the lung bases to the proximal femurs. Images are reviewed in the axial, sagittal, and coronal planes. IV contrast was administered without complication. CT DOSE: 1029.23 mGy.cm FINDINGS: Lower chest: The heart is normal in size and configuration, without pericardial effusion. The lung bases and pleural spaces are clear. Liver: The contrast-enhanced liver is normal in size, contour, and attenuation. There is no intrahepatic biliary ductal dilatation. The hepatic veins and portal veins are patent. The common bile duct measures 9 mm. Gallbladder: Surgically absent Spleen: Normal in size and attenuation. Pancreas: Unremarkable. Adrenal glands: Unremarkable. Kidneys: There is a 7 mm left renal hypodensity likely representing a cyst. Bowel: There are no transition zone to indicate bowel obstruction. There is no evidence of acute diverticulitis. There are no findings to indicate acute appendicitis. There is borderline bowel wall thickening involving the descending colon Peritoneum: There is no intraperitoneal free air or abdominal ascites. Vasculature: The abdominal aorta is normal in course and caliber. Adenopathy: None. Pelvic viscera: The patient is status post a prior hysterectomy. Skeletal structures: There are postsurgical changes present within the lumbar spine IMPRESSION: 1. No evidence of bowel obstruction. No evidence of free air 2. No evidence of acute diverticulitis. No evidence of acute appendicitis 3. Surgically absent gallbladder and uterus 4. Postsurgical changes involving the lumbar spine 5. Borderline bowel wall thickening involving the descending colon Laboratory Results 04/02/17 11:05 Red Blood Count 4.71, Mean Corpuscular Volume 92.6, Mean Corpuscular Hemoglobin 30.4, Mean Corpuscular Hemoglobin Concent 32.8, Mean Platelet Volume 10.2, Neutrophils (%) (Auto) 80.8, Lymphocytes (%) (Auto) 14.3, Monocytes (%) (Auto) 4.0, Eosinophils (%) (Auto) 0.3, Basophils (%) (Auto) 0.1, Neutrophils # (Auto) 8.01, Lymphocytes # (Auto) 1.42, Monocytes # (Auto) 0.40, Eosinophils # (Auto) 0.03, Basophils # (Auto) 0.01 04/02/17 11:05 Test 04/02/17 11:04 04/02/17 11:05 Urine Color YELLOW Urine Appearance CLEAR (CLEAR) Urine pH 5.0 (4.5-7.5) Urine Specific [place] 1.012 (1.000-1.030) Urine Protein NEG (NEG) Urine Glucose (UA) NEG (NEG) Urine Ketones NEG (NEG) Urine Occult Blood NEG (NEG) Urine Nitrite NEG (NEG) Urine Bilirubin NEG (NEG) Urine Urobilinogen NEG (NEG) Urine Leukocyte Esterase NEG (NEG) White Blood Count 9.92 K/uL (4.8-10.8) Red Blood Count 4.71 M/uL (4.2-5.4) Hemoglobin 14.3 g/dL (12.0-16.0) Hematocrit 43.6 % (37-47) Mean Corpuscular Volume 92.6 fL (80-100) Mean Corpuscular Hemoglobin 30.4 pg (25-34) Mean Corpuscular Hemoglobin Concent 32.8 g/dl (32-36) Platelet Count 261 K/uL (130-400) Mean Platelet Volume 10.2 fL (7.4-10.4) Neutrophils (%) (Auto) 80.8 % Lymphocytes (%) (Auto) 14.3 % Monocytes (%) (Auto) 4.0 % Eosinophils (%) (Auto) 0.3 % Basophils (%) (Auto) 0.1 % Neutrophils # (Auto) 8.01 K/uL (1.4-6.5) Lymphocytes # (Auto) 1.42 K/uL (1.2-3.4) Monocytes # (Auto) 0.40 K/uL (0.11-0.59) Eosinophils # (Auto) 0.03 K/uL (0-0.5) Basophils # (Auto) 0.01 K/uL (0-0.2) RDW Standard Deviation 45.5 fL (36.4-46.3) RDW Coefficient of Variation 13.3 % (11.5-14.5) Immature Granulocyte % (Auto) 0.5 % Immature Granulocyte # (Auto) 0.05 K/uL (0.00-0.02) Anion Gap 8.0 mmol/L (3-11) Est Creatinine Clear Calc Drug Dose 93.0 ml/min Estimated GFR () 94.6 Estimated GFR (Non- 81.6 BUN/Creatinine Ratio 10.4 (10-20) Calcium Level 9.0 mg/dl (8.5-10.1) Total Bilirubin 0.5 mg/dl (0.2-1) Direct Bilirubin 0.1 mg/dl (0-0.2) Aspartate Amino Transf (AST/SGOT) 14 U/L (15-37) Alanine Aminotransferase (ALT/SGPT) 34 U/L (12-78) Alkaline Phosphatase 77 U/L (45-117) Total Protein 7.0 gm/dl (6.4-8.2) Albumin 3.7 gm/dl (3.4-5.0) Amylase Level 39 U/L (25-115) Lipase 168 U/L (73-393) Medications Administered Medications (Trade) Dose Ordered Sig/Ora Route Start Time Stop Time Status Last Admin Dose Admin Sodium Chloride 1,000 ml @ 999 mls/hr Q1H1M STAT IV 04/02/17 10:45 04/02/17 11:45 DC 04/02/17 11:10 999 MLS/HR Sodium Chloride 1,000 ml @ 250 mls/hr Q4H STAT IV 04/02/17 10:45 04/02/17 14:44 DC 04/02/17 11:34 250 MLS/HR Promethazine HCl 12.5 mg/Sodium Chloride 50.5 ml @ 204 mls/hr NOW STAT IV 04/02/17 11:12 04/02/17 11:26 DC 04/02/17 11:33 204 MLS/HR Hydromorphone HCl (Dilaudid Inj) 1 mg NOW STAT IV 04/02/17 11:12 04/02/17 11:13 DC 04/02/17 11:32 1 MG ED Course The patient was seen and assessed as above. Old records were reviewed, including her outpatient laboratory studies and CT scan from the last 2 days. IV lock was initiated. She was hydrated with normal saline solution and medicated with Phenergan and Dilaudid IV with good relief of her symptoms. Urinalysis, urine test, CBC, BMP, LFTs, amylase and lipase were drawn. Laboratory studies today noted a normal white count at 9900, slight left shift noted. H&H is normal. Electrolytes are within normal limits. Liver functions and renal functions are normal, pancreatic markers are not elevated and urinalysis was completely clear. All laboratory studies were reviewed with the patient. The event her persistent right-sided abdominal pain however, CT scan of the abdomen and pelvis with IV contrast was obtained. There is no evidence for infectious or inflammatory findings in the abdomen. The patient was reassured. Conservative care measures were discussed. She was encouraged to follow a clear liquid diet , and was given a prescription for Phenergan to use as needed for nausea. She declined narcotic analgesia. She was referred back to pain and see family medicine for recheck of her present condition. Differential diagnoses entertained included UTI, pyelonephritis, renal colic, IBS exacerbation, bowel obstruction, perforation, abscess, diverticulitis, infectious versus inflammatory colitis, pancreatitis, choledocholithiasis, appendicitis, among others. Medication reconciliation: I attest that I have personally reviewed the patient' s current medication list. Blood pressure screening : Patient was found to have normal blood pressure on screening and does not require follow-up. Medical Decision See Emergency Department course. Impression Primary Impression: Right sided abdominal pain Departure Information Prescriptions Promethazine Hcl (Phenergan) 25 Mg Tab 25 MG PO Q6H Y for Nausea, #20 TAB Prov: Ny Mueller PA 04/02/17 Referrals Saolme Esquivel M.D. (PCP) Patient Instructions My [facility] Additional Instructions DO NOT drive, drink alcohol, operate machinery, or perform dangerous activities today. You were given medications in the ER that can affect your ability to safely function or operate a vehicle. Acetaminophen(Tylenol) may be used for fever or pain. Use 1000mg every eight hours as needed. Avoid using more than 3000mg in a 24 hour period. This is available over the counter. Phenergan(promethazine) tablets 25mg: Take one every six hours as needed for nausea. Avoid alcohol, operating machinery or dangerous equipment, working on ladders or roofs , DRIVING, or situations where being under the influence may be dangerous. Read all the package inserts or medication information paperwork provided. If you have any questions or concerns call your primary provider, pharmacist or the ER for assistance. Rest and drink plenty of fluids as tolerated. Slow sips of water or sports drinks are recommended instead of large amounts all at once. Continue current medications. Once your stomach is settled start with a clear liquid diet (jello, soup broth, etc.) and then advance as tolerated. You should avoid full, heavy meals for about 24 hrs from the time your symptoms resolved. Return to the ER immediately for worsening or persistent abdominal pain, vomiting, fevers, chest pains, difficulty breathing, black or bloody stools, worsening of your condition, or as needed. Follow up with your primary physician in 1-2 days for a recheck of your current condition.
[2017-04-02 14:51] VITALS: BP 114/85; PULSE 59; O2SAT 94
[2017-04-10] MEDS ORDERED: PRLSR20 PO (08:25)
== END 2017-04-02 14:52 | disposition home or self-care (01) ==
LOC: C.EDB 09:45
DX: R10.11 Right upper quadrant pain (principal); R10.31 Right lower quadrant pain; R11.2 Nausea with vomiting, unspecified; K58.9 Irritable bowel syndrome, unspecified; I31.9 Disease of pericardium, unspecified; I10 Essential (primary) hypertension; K21.9 Gastro-esophageal reflux disease without esophagitis; M51.16 Intervertebral disc disorders with radiculopathy, lumbar region; M48.06 Spinal stenosis, lumbar region; Z87.442 Personal history of urinary calculi; Z87.891 Personal history of nicotine dependence; Z90.710 Acquired absence of both cervix and uterus; Z90.721 Acquired absence of ovaries, unilateral; Z83.3 Family history of diabetes mellitus; Z82.49 Family history of ischemic heart disease and other diseases of the circulatory system

== ENCOUNTER 2018-02-23 09:29 | Emergency (ER) | payer BC, OTHER ==
[~2018-02-23] VITALS: Ht 157.5 cm; Wt 100.4 kg
[~2018-02-23 09:29] MED LIST changes: -COLC0.6T54 PO; -DIPH38TA PO; -IBUP-1050 PO; -IND/25 PO; -OMEP20CA9 PO; +PRLSR20 PO
[2018-02-23 09:33] VITALS: TEMP 36.8; Ht 157.5 cm; Wt 100.4 kg
[2018-02-23] MEDS ORDERED: DiphenhydrAMINE HCL 50 MG/ML VIAL IV STA (09:48)
[2018-02-23] MEDS ORDERED: PROCHLORPERAZINE 5 MG/ML 2 ML VIAL IV STA (09:48)
[2018-02-23] MEDS ORDERED: SODIUM CHLORIDE 0.9% 1000ML 1,000 ML IV STA (09:48)
--- NOTE | 2018-02-23 09:56 | EMERGENCY ROOM VISIT NOTE ---
History Report prepared by Indu: Roselyn Duarte Under the Supervision of: Dr. Jeffry Graham M.D. First contact with patient: 09:40 Chief Complaint: ABDOMINAL PAIN Stated Complaint: RLQ PAIN, NAUSEA, LOSS OF APPETITE History of Present Illness The patient is a 42 year old female who presents to the Emergency Room with complaints of abdominal pain beginning yesterday morning. She states she has barely been able to eat since her pain began. She describes her pain as waxes and waning as it ranges from dull to sharp. The patient rates her pain as an 8/ 10 in severity. Pain began in the periumbilical area and has since radiated to her right lower quadrant. She also has associated fevers with a max of 100.4 yesterday morning, nausea, and constipation but denies vomiting or any chance of . She has a history of a hysterectomy and a cholecystectomy but she still has her appendix. Source of History: patient Onset: yesterday morning Position: abdomen Symptom Intensity: 8/10 Quality: other (ranges from dull to sharp) Timing: waxes/wanes Associated Symptoms: + fevers (max of 104), + nausea, No vomiting Note: Positive constipation. Negative chance of Review of Systems See HPI for pertinent positives and negatives. A total of ten systems were reviewed and were otherwise negative. Past Medical & Surgical Medical Problems: (1) Acute abdominal pain (2) Acute abdominal pain (3) Acute abdominal pain (4) Diarrhea (5) Endometriosis (6) Essential (Primary) Hypertension (7) GERD (gastroesophageal reflux disease) (8) Hypertension (9) IBS (irritable bowel syndrome) (10) Kidney stones (11) Left sided chest pain (12) Left sided chest pain (13) Lower abdominal pain (14) Lumbar disc herniation with radiculopathy (15) Lumbar stenosis with neurogenic claudication (16) Mastitis in female (17) Pericarditis (18) Right-sided chest wall pain (19) Upper abdominal pain (20) UTI (urinary tract infection) (21) Vomiting Surgical Problems: (1) Exploratory laparoscopy (2) History of cholecystectomy (3) History of hysterectomy (4) History of orthopedic surgery Family History FHx: diabetes FHx: heart disease FHx: hypertension Social History Smoking Status: Never Smoker Alcohol Use: none Drug Use: none Marital Status: Housing Status: lives with family Occupation Status: employed Current/Historical Medications Scheduled Cetirizine (Zyrtec), 10 MG PO DAILY Folic Acid (Folic Acid), 1 MG PO QAM Hydroxychloroquine Sulfate (Plaquenil), 400 MG PO HS Methotrexate Sodium (Methotrexate), 10 MG PO WK Allergies Coded Allergies: Codeine (Verified Allergy, Unknown, HIVES, 02/23/18) Egg (Verified Allergy, Unknown, HIVES, 02/23/18) Morphine (Verified Allergy, Unknown, HIVES, 02/23/18) Ondansetron (Verified Allergy, Unknown, HIVES, 02/23/18) Oxycodone (Verified Allergy, Unknown, HIVES, 02/23/18) Sulfamethoxazole w/Trimethoprim (Verified Allergy, Unknown, hives, 02/23/18 ) Tuberculin (Verified Allergy, Unknown, RASH, 02/23/18) Physical Exam Vital Signs Date Time Temp Pulse Resp B/P (MAP) Pulse Ox O2 Delivery O2 Flow Rate FiO2 02/23/18 11:35 54 16 113/66 100 Room Air 02/23/18 09:33 36.8 66 20 126/77 100 Room Air Physical Exam Physical Exam GENERAL: She is oriented to person, place, and time. She appears well- developed and well-nourished. She does not appear distressed. ____ HENT: Exam performed. Head: Normocephalic and atraumatic. Right Ear: External ear normal. No mastoid tenderness. Left Ear: External ear normal. No mastoid tenderness. Mouth/Throat: The oropharynx is clear and moist. No trismus in the jaw. No dental abscesses or uvula swelling. No oropharyngeal exudate or tonsillar abscesses. ____ EYES: Conjunctivae and EOM are normal. Pupils are equal, round, and reactive to light. Right eye exhibits no discharge. Left eye exhibits no discharge. No scleral icterus. ____ NECK: Normal range of motion. Neck supple. No JVD present. No spinous process tenderness present. No carotid bruit present. No rigidity. No tracheal deviation and normal range of motion present. No Brudzinski's sign and no Kernig 's sign noted. ____ CV: Normal rate, regular rhythm, normal heart sounds and intact distal pulses. There is no peripheral edema. Palpable radial pulses bue. ____ PULM/CHEST: Effort normal and breath sounds normal. No respiratory distress. No stridor. She has no wheezes. She has no rales. Chest Wall: She exhibits no tenderness. ____ ABD: The abdomen is soft. Bowel sounds are normal. She has no distension. No mass is present. No guarding, no Dupont's sign. Abdominal pain on palpation of the RLQ. Rebound and Rovsig's positive. MUSC/SKEL: Normal range of motion. There is no peripheral edema, tenderness or deformity. LYMPH: No cervical adenopathy. ____ NEURO: She is alert and oriented to person, place, and time. She has normal strength. No cranial nerve deficit or sensory deficit. Coordination and gait normal. GCS eye subscore is 4. GCS verbal subscore is 5. GCS motor subscore is 6. Cerebellar tests wnl. ____ SKIN: Skin is warm and dry. She is not diaphoretic. ____ PSYCH: She has a normal mood and affect. Her behavior is normal. Judgment and thought content normal. ____ Medical Decision & Procedures ER Provider Diagnostic Interpretation: Radiology results as stated below per my review and radiologist interpretation: ABDOMEN AND PELVIS CT WITH IV CONTRAST CT DOSE: 822.95 mGy.cm HISTORY: Right lower quadrant abdominal pain. TECHNIQUE: Multiaxial CT images of the abdomen and pelvis were performed following the use of intravenous contrast. A dose lowering technique was utilized adhering to the principles of ALARA. COMPARISON STUDY: Abdomen and pelvis CT 04/02/2017. FINDINGS: The lung bases are clear. No pneumoperitoneum. No pneumatosis. L4-S1 posterior decompression and fusion. Cholecystectomy. Mild dilatation of the common bile duct, unchanged. This is likely due to the patient's postcholecystectomy state. No hepatic or splenic masses. The pancreas, adrenal glands, and right kidney are unremarkable. Stable 7 mm cyst within the left kidney. No hydronephrosis. No retroperitoneal lymphadenopathy. Hysterectomy. The bladder is unremarkable. No bowel wall thickening or obstruction. Normal appendix. IMPRESSION: 1. No bowel wall thickening or obstruction. 2. Normal appendix. 3. No hydronephrosis. 4. Prior cholecystectomy and hysterectomy. Electronically signed by: Eric Lao M.D. 02/23/2018 10:58 AM Laboratory Results 02/23/18 09:55 Red Blood Count 4.62, Mean Corpuscular Volume 92.4, Mean Corpuscular Hemoglobin 31.8, Mean Corpuscular Hemoglobin Concent 34.4, Mean Platelet Volume 11.2, Neutrophils (%) (Auto) 69.6, Lymphocytes (%) (Auto) 21.6, Monocytes (%) (Auto) 7.5, Eosinophils (%) (Auto) 0.8, Basophils (%) (Auto) 0.3, Neutrophils # (Auto) 4.49, Lymphocytes # (Auto) 1.39, Monocytes # (Auto) 0.48, Eosinophils # (Auto) 0.05, Basophils # (Auto) 0.02 02/23/18 09:55 Test 02/23/18 09:47 02/23/18 09:55 02/23/18 09:59 Urine Color YELLOW Urine Appearance CLEAR (CLEAR) Urine pH 5.0 (4.5-7.5) Urine Specific Bolton 1.022 (1.000-1.030) Urine Protein NEG (NEG) Urine Glucose (UA) NEG (NEG) Urine Ketones NEG (NEG) Urine Occult Blood NEG (NEG) Urine Nitrite NEG (NEG) Urine Bilirubin NEG (NEG) Urine Urobilinogen NEG (NEG) Urine Leukocyte Esterase NEG (NEG) Urine Test NEG (NEG) White Blood Count 6.44 K/uL (4.8-10.8) Red Blood Count 4.62 M/uL (4.2-5.4) Hemoglobin 14.7 g/dL (12.0-16.0) Hematocrit 42.7 % (37-47) Mean Corpuscular Volume 92.4 fL (80-100) Mean Corpuscular Hemoglobin 31.8 pg (25-34) Mean Corpuscular Hemoglobin Concent 34.4 g/dl (32-36) Platelet Count 254 K/uL (130-400) Mean Platelet Volume 11.2 fL (7.4-10.4) Neutrophils (%) (Auto) 69.6 % Lymphocytes (%) (Auto) 21.6 % Monocytes (%) (Auto) 7.5 % Eosinophils (%) (Auto) 0.8 % Basophils (%) (Auto) 0.3 % Neutrophils # (Auto) 4.49 K/uL (1.4-6.5) Lymphocytes # (Auto) 1.39 K/uL (1.2-3.4) Monocytes # (Auto) 0.48 K/uL (0.11-0.59) Eosinophils # (Auto) 0.05 K/uL (0-0.5) Basophils # (Auto) 0.02 K/uL (0-0.2) RDW Standard Deviation 44.9 fL (36.4-46.3) RDW Coefficient of Variation 13.3 % (11.5-14.5) Immature Granulocyte % (Auto) 0.2 % Immature Granulocyte # (Auto) 0.01 K/uL (0.00-0.02) Est Creatinine Clear Calc Drug Dose 106.9 ml/min Estimated GFR () 112.1 Estimated GFR (Non- 96.8 BUN/Creatinine Ratio 19.1 (10-20) Calcium Level 8.8 mg/dl (8.5-10.1) Total Bilirubin 0.7 mg/dl (0.2-1) Direct Bilirubin 0.2 mg/dl (0-0.2) Aspartate Amino Transf (AST/SGOT) 19 U/L (15-37) Alanine Aminotransferase (ALT/SGPT) 26 U/L (12-78) Alkaline Phosphatase 83 U/L (45-117) Total Protein 8.0 gm/dl (6.4-8.2) Albumin 3.9 gm/dl (3.4-5.0) Lipase 144 U/L (73-393) Bedside Hemoglobin 14.6 g/dl (12.0-16.0) Bedside Hematocrit 43 % (37-47) Bedside Sodium 139 mEq/L (135-144) Bedside Potassium 3.8 mEq/L (3.3-5.0) Bedside Chloride 104 mEq/L (101-112) Bedside Total CO2 25 mEq/l (24-31) Anion Gap 15.0 mmol/L (16-25) Bedside Blood Urea Nitrogen 17 mg/dl (7-18) Bedside Creatinine 0.7 mg/dl (0.6-1.3) Bedside Glucose (other) 88 mg/dl (70-99) Bedside Ionized Calcium (Sridhar) 1.16 mmol/l (1.12-1.32) Laboratory results reviewed by me Medications Administered Medications (Trade) Dose Ordered Sig/Ora Route Start Time Stop Time Status Last Admin Dose Admin Sodium Chloride 1,000 ml @ 999 mls/hr Q1H1M STAT IV 02/23/18 09:48 02/23/18 10:48 DC 02/23/18 10:02 999 MLS/HR Hydromorphone HCl (Dilaudid Inj) 1 mg ONE PRN IV 02/23/18 10:00 02/23/18 12:09 DC 02/23/18 10:01 1 MG Prochlorperazine Edisylate (Compazine Inj) 5 mg NOW STAT IV 02/23/18 09:48 02/23/18 09:51 DC 02/23/18 10:00 5 MG Diphenhydramine HCl (Benadryl Inj) 25 mg NOW STAT IV 02/23/18 09:48 02/23/18 09:51 DC 02/23/18 10:01 25 MG ED Course 0941: The patient was evaluated in room A11. A complete history and physical exam was performed. 0948: Ordered Benadryl Inj 25 mg IV, Compazine Inj 5 mg IV, Sodium Chloride 1000 ml @ 999 mls/hr IV 1000: Ordered Dilaudid Inj 1 mg IV 1145: Vital signs stable. Labs and CT within normal limits. Discharge with follow-up PCP. DISCHARGE - Plan of care discussed with patient and questions answered. The patient was given both verbal and printed discharge instructions. The patient verbalized understanding and ability to comply. The patient is to seek outpatient follow up as noted in the discharge instructions. The patient verbalized understanding and ability to comply. The patient is discharged in stable condition. The patient was instructed to return for worsening symptoms. Medical Decision Vital signs stable. Labs and CT within normal limits. Discharge with follow- up PCP. DISCHARGE - Plan of care discussed with patient and questions answered. The patient was given both verbal and printed discharge instructions. The patient verbalized understanding and ability to comply. The patient is to seek outpatient follow up as noted in the discharge instructions. The patient verbalized understanding and ability to comply. The patient is discharged in stable condition. The patient was instructed to return for worsening symptoms. Medication Reconcilliation Current Medication List: was personally reviewed by me Blood Pressure Screening Patient's blood pressure: Normal blood pressure Blood pressure disposition: Did not require urgent referral Impression Primary Impression: Acute abdominal pain Scribe Attestation The scribe's documentation has been prepared under my direction and personally reviewed by me in its entirety. I confirm that the note above accurately reflects all work, treatment, procedures, and medical decision making performed by me. The chart was completed utilizing [employer] Speech voice recognition software. Grammatical errors, random word insertions, pronoun errors, and incomplete sentences are an occasional consequence of this system due to software limitations, ambient noise, and hardware issues. Any formal questions or concerns about the content, text, or information contained within the body of this dictation should be directly addressed to the physician for clarification. Departure Information Referrals Salome Esquivel M.D. (PCP) Patient Instructions My [facility]
[2018-02-23] MEDS ORDERED: OPTIRAY 320 IV PRN (10:00)
[2018-02-23] MEDS ORDERED: HYDROmorphone INJ 1 MG/ML SYR IV PRN (10:00)
[2018-02-23 10:10] LABS: BASO % 0.3 %; BASO ABS # 0.02 K/uL (0-0.2); EOS % 0.8 %; EOS ABS # 0.05 K/uL (0-0.5); HEMATOCRIT 42.7 % (37-47); HEMOGLOBIN 14.7 g/dL (12.0-16.0); IG# 0.01 K/uL (0.00-0.02); LYMPH % 21.6 %; LYMPH ABS # 1.39 K/uL (1.2-3.4); MEAN CELL VOLUME 92.4 fL (80-100); MEAN CORPUSCULAR HEMOGLOBIN 31.8 pg (25-34); MEAN CORPUSCULAR HGB CONC 34.4 g/dl (32-36); MEAN PLATELET VOLUME 11.2 fL (7.4-10.4); MONO % 7.5 %; MONO ABS # 0.48 K/uL (0.11-0.59); NEUT % 69.6 %; NEUT ABS # 4.49 K/uL (1.4-6.5); PLATELET COUNT 254 K/uL (130-400); RED CELL DISTRIBUTION WIDTH CV 13.3 % (11.5-14.5); RED CELL DISTRIBUTION WIDTH SD 44.9 fL (36.4-46.3); WHITE BLOOD COUNT 6.44 K/uL (4.8-10.8)
[2018-02-23 10:14] LABS: ISTAT CREATININE 0.7 mg/dl (0.6-1.3); ISTAT IONIZED CALCIUM 1.16 mmol/l (1.12-1.32); ISTAT POTASSIUM 3.8 mEq/L (3.3-5.0)
[2018-02-23 10:31] LABS: ALBUMIN 3.9 gm/dl (3.4-5.0); CALCIUM 8.8 mg/dl (8.5-10.1); CREATININE 0.76 mg/dl (0.60-1.20); POTASSIUM 3.8 mmol/L (3.5-5.1)
--- NOTE | 2018-02-23 11:00 | DIAGNOSTIC IMAGING REPORT ---
ABDOMEN AND PELVIS CT WITH IV CONTRAST CT DOSE: 822.95 mGy.cm HISTORY: Right lower quadrant abdominal pain. TECHNIQUE: Multiaxial CT images of the abdomen and pelvis were performed following the use of intravenous contrast. A dose lowering technique was utilized adhering to the principles of ALARA. COMPARISON STUDY: Abdomen and pelvis CT 04/02/2017. FINDINGS: The lung bases are clear. No pneumoperitoneum. No pneumatosis. L4-S1 posterior decompression and fusion. Cholecystectomy. Mild dilatation of the common bile duct, unchanged. This is likely due to the patient's postcholecystectomy state. No hepatic or splenic masses. The pancreas, adrenal glands, and right kidney are unremarkable. Stable 7 mm cyst within the left kidney. No hydronephrosis. No retroperitoneal lymphadenopathy. Hysterectomy. The bladder is unremarkable. No bowel wall thickening or obstruction. Normal appendix. IMPRESSION: 1. No bowel wall thickening or obstruction. 2. Normal appendix. 3. No hydronephrosis. 4. Prior cholecystectomy and hysterectomy. Electronically signed by: Eric Lao M.D. 02/23/2018 10:58 AM Dictated Date/Time: 02/23/2018 10:49 AM
[2018-02-23] MEDS ORDERED: HYDR200T5 PO (11:08)
[2018-02-23] MEDS ORDERED: METH2.5T PO (11:08)
[2018-02-23] MEDS ORDERED: FLV1 PO (11:08)
[2018-02-23 11:35] VITALS: BP 113/66; PULSE 54; O2SAT 100
== END 2018-02-23 11:53 | disposition home or self-care (01) ==
LOC: C.EDB 09:30 → C.EDA 11:53
DX: R10.31 Right lower quadrant pain (principal); I10 Essential (primary) hypertension; K21.9 Gastro-esophageal reflux disease without esophagitis; K58.9 Irritable bowel syndrome, unspecified; Z87.442 Personal history of urinary calculi; Z79.899 Other long term (current) drug therapy; Z88.5 Allergy status to narcotic agent; Z88.2 Allergy status to sulfonamides; Z91.018 Allergy to other foods

== ENCOUNTER → 2018-04-26 | Outpatient (CLI) | payer OTHER ==
[~2018-04-26] MED LIST changes: -CHOL1000 PO; +FLV1 PO; +HYDR200T5 PO; +METH2.5T PO; -PRLSR20 PO; -VITA100C2 PO
--- NOTE | 2018-04-26 10:53 | DIAGNOSTIC IMAGING REPORT ---
L ANKLE MIN 3 VIEWS ROUTINE HISTORY: 42 years-old Female FALL acute posttraumatic left ankle pain COMPARISON: Left ankle radiographs 03/06/2018 TECHNIQUE: 3 views of the left ankle FINDINGS: Mild circumferential soft tissue swelling about the ankle. No acute fracture, dislocation, osteochondral defect or opaque foreign body. Small enthesophytes about the Achilles and plantar calcaneus. IMPRESSION: Soft tissue swelling without acute fracture or dislocation. The above report was generated using voice recognition software. It may contain grammatical, syntax or spelling errors. Electronically signed by: Usama Tee M.D. 04/26/2018 10:51 AM Dictated Date/Time: 04/26/2018 10:49 AM
== END | disposition home or self-care (01) ==
LOC: C.RAD1850 10:36
PROVIDERS: ATTEND Family Medicine
DX: M25.572 Pain in left ankle and joints of left foot (principal); M79.89 Other specified soft tissue disorders; W19.XXXA Unspecified fall, initial encounter

== ENCOUNTER 2019-12-19 10:03 | Observation (INO) ==
[2019-12-19] MEDS ORDERED: methylPREDNISolone 60 MG in SYRINGE 1 ML IV STA (10:43)
[2019-12-19] MEDS ORDERED: ALBUT/IPRATROP 3MG/0.5MG NEB 3 ML VIAL INH STA (10:43)
--- NOTE | 2019-12-19 10:54 | Emergency Department Note ---
ED Provider Note NAME: SOFIA SOLARES AGE: 44 SEX: F : 1975 ARRIVES VIA: Walk-In INFORMANT: [Patient] ED PROVIDER(S): [Alverto Urena MD] CHIEF COMPLAINT: Shortness of breath HISTORY OF PRESENT ILLNESS: The patient is a 44-year-old female who is somewhat immunocompromised for medications she takes for presumed arthritis. She does have a history of a lung infection back in October, few months ago. The patient states that about a week ago she began noticing a cough and some flulike symptoms. She was seen by the outpatient office and told to restart using her albuterol, no prednisone or antibiotics prescribed. The patient states that as the days have gone on, she has become short of breath, she has noticed wheezing, she has some diffuse achy chest pain that is worse with coughing. The pain is moderate in severity and mostly along the right lateral chest wall. She has had a fever, her cough has been productive at times. 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 The patient states that despite the albuterol, she has made no improvement, things have definitely worsened. She denies any vomiting or diarrhea. There has been no abdominal pain. She states that so far, she has not been tested for the flu. REVIEW OF SYSTEMS: See HPI for pertinent positives and negatives. A total of ten systems were reviewed and were otherwise negative. PMHx/PSHx: See Below SOCIAL HISTORY: See Below. PHYSICAL EXAM: GENERAL: Patient is in mild respiratory distress. HEENT: No acute trauma, normocephalic atraumatic, mucous membranes moist, no nasal congestion, no scleral icterus. No throat erythema or exudate NECK: No stridor, no adenopathy, no meningismus, trachea is midline. LUNGS: Wheezing bilaterally, mild respiratory distress, equal breath sounds, diminished breath sounds bilaterally. Persistent cough noted. HEART: Without murmurs gallops or rubs, regular rate and rhythm. Chest: She has some tenderness about the entire chest wall especially the right chest wall, no rash. ABDOMEN: Soft, nontender, bowel sounds positive, no hernias, no peritonitis. EXTREMITIES: No cyanosis or edema, full range of motion of all the joints without pain or difficulty, no signs for acute trauma. NEUROLOGIC: Oriented x 3, no acute motor or sensory deficits, no focal weakness. SKIN: No rash, no jaundice, no diaphoresis. DIFFERENTIAL DIAGNOSIS: Reactive airway disease, pneumonia, pneumothorax, COPD, CHF, infections, coronavirus, cardiac ischemia, pulmonary embolism, musculoskeletal, gastrointestinal, as well as other pathologies. EMERGENCY DEPARTMENT COURSE/PROCEDURES: ECG: Indication is shortness of breath. There is a normal sinus rhythm with a rate of 68. No ST elevations, no PVCs, no PACs. QTC is 421. Continuous Cardiac Monitoring: An order was placed for continuous cardiac monitoring. The monitor shows a rate of 91 with normal sinus rhythm. Critical Care Note: I have personally spent greater than 32 minutes of critical care time in the direct management of this patient. This includes bedside care, interpretation of diagnostic studies and testing, discussion with consultants, the patient, and family members, and other required patient management activities. This 32 minutes is in excess of all separately billable procedures. MEDICAL DECISION MAKING: There is no leukocytosis or concerning anemia. There is a normal platelet count. No coagulopathy. No significant electrolyte abnormality or kidney failure. No liver enzyme elevation. EKG shows a sinus rhythm, no acute ischemia. Cardiac enzyme testing x1 is not consistent with acute cardiac inju ry. Lactic acid level is not elevated making sepsis less likely. Chest film does not show pneumonia or pneumothorax, there was no CHF. Influenza testing returned negative. Bio fire testing returned positive for human metapneumovirus. When the patient arrived, she was visibly short of breath. She was aggressively managed. She received albuterol via nebulizer,, a second DuoNeb was given. She was given IV Solu-Medrol. Patient did feel improved after this treatment. The patient was initially in respiratory isolation. She had been sent in for concern for coronavirus although, she did not have any significant or concerning exposure to this virus. By work-up, she appears to have a metapneumovirus as a cause for her bronchitis. I do think the patient requires a hospital stay. She has failed outpatient treatment. She was visibly short of breath when she arrived. She was tachypneic and wheezing. I spoke to the patient, I talked with case management. The on-call hospitalist was consulted. Impression & Plan Acute respiratory distress, Wheezing, Acute bronchitis, Failure of outpatient treatment Past Med/Surg History Medical History Acute abdominal pain (Resolved) Acute abdominal pain (Resolved) Diarrhea (Resolved) Lower abdominal pain (Resolved) Lumbar disc herniation with radiculopathy (Resolved 08/04/14) Lumbar stenosis with neurogenic claudication (Resolved 08/05/14) Mastitis in female (Resolved) Right-sided chest wall pain (Resolved) UTI (urinary tract infection) (Resolved) Vomiting (Resolved) Surgical History H/O: hysterectomy History of lumbar fusion Hx of cholecystectomy Family History Other No significant family history Social History Preferred Language: Albanian Communication Ability: Effective marital status: Current Living Situation: Spouse Feels Safe at Home: Yes Smoking Status: Never smoker Results & Data Vital Signs Vital Signs - 24 hr 12/19/19 10:08 12/19/19 10:43 12/19/19 11:00 Temperature 36.7 C Temperature Source Oral Pulse Rate 85 78 80 Pulse Rate [Apical] 74 Pulse Rate from SpO2 Sensor 79 77 Pulse Rhythm [Apical] Regular Respiratory Rate 22 16 27 H Respiratory Effort / Characteristics Spontaneous Short of Breath Tripoding Blood Pressure 178/89 H Blood Pressure Mean 118 Pulse Oximetry 98 96 97 Oxygen Delivery Method Room Air Room Air Sepsis Recent Fever Within 48 Hours Yes Sepsis New/Unexplained Change in Mental Status No Sepsis Action Taken by Nursing Physician Notified 12/19/19 11:30 12/19/19 11:31 12/19/19 12:00 Temperature Temperature Source Pulse Rate 64 61 62 Pulse Rate [Apical] Pulse Rate from SpO2 Sensor 62 61 Pulse Rhythm [Apical] Respiratory Rate 28 H 23 24 Respiratory Effort / Characteristics Blood Pressure 120/73 123/77 Blood Pressure Mean 91 91 Pulse Oximetry 98 100 Oxygen Delivery Method Sepsis Recent Fever Within 48 Hours Sepsis New/Unexplained Change in Mental Status Sepsis Action Taken by Nursing 12/19/19 12:01 12/19/19 12:30 12/19/19 12:31 Temperature Temperature Source Pulse Rate 64 62 64 Pulse Rate [Apical] Pulse Rate from SpO2 Sensor 63 61 62 Pulse Rhythm [Apical] Respiratory Rate 23 26 H 20 Respiratory Effort / Characteristics Blood Pressure 129/71 Blood Pressure Mean 95 Pulse Oximetry 100 98 98 Oxygen Delivery Method Sepsis Recent Fever Within 48 Hours Sepsis New/Unexplained Change in Mental Status Sepsis Action Taken by Nursing 12/19/19 13:00 12/19/19 13:01 12/19/19 13:30 Temperature Temperature Source Pulse Rate 66 65 83 Pulse Rate [Apical] Pulse Rate from SpO2 Sensor 68 66 76 Pulse Rhythm [Apical] Respiratory Rate 26 H 29 H 20 Respiratory Effort / Characteristics Blood Pressure 125/71 113/87 Blood Pressure Mean 102 91 Pulse Oximetry 98 98 96 Oxygen Delivery Method Room Air Sepsis Recent Fever Within 48 Hours Sepsis New/Unexplained Change in Mental Status Sepsis Action Taken by Nursing 12/19/19 13:31 12/19/19 14:00 12/19/19 14:31 Temperature Temperature Source Pulse Rate 87 89 81 Pulse Rate [Apical] Pulse Rate from SpO2 Sensor 84 87 85 Pulse Rhythm [Apical] Respiratory Rate 23 21 25 H Respiratory Effort / Characteristics Blood Pressure 115/88 Blood Pressure Mean 94 Pulse Oximetry 98 95 97 Oxygen Delivery Method Sepsis Recent Fever Within 48 Hours Sepsis New/Unexplained Change in Mental Status Sepsis Action Taken by Nursing 12/19/19 14:32 12/19/19 14:40 12/19/19 14:50 Temperature Temperature Source Pulse Rate 89 89 95 H Pulse Rate [Apical] Pulse Rate from SpO2 Sensor 90 94 H 97 H Pulse Rhythm [Apical] Respiratory Rate 25 H 24 26 H Respiratory Effort / Characteristics Blood Pressure Blood Pressure Mean Pulse Oximetry 99 97 98 Oxygen Delivery Method Sepsis Recent Fever Within 48 Hours Sepsis New/Unexplained Change in Mental Status Sepsis Action Taken by Nursing 12/19/19 15:00 12/19/19 15:10 12/19/19 15:20 Temperature Temperature Source Pulse Rate 88 91 H 86 Pulse Rate [Apical] Pulse Rate from SpO2 Sensor 89 92 H 87 Pulse Rhythm [Apical] Respiratory Rate 22 24 27 H Respiratory Effort / Characteristics Blood Pressure Blood Pressure Mean Pulse Oximetry 97 97 95 Oxygen Delivery Method Sepsis Recent Fever Within 48 Hours Sepsis New/Unexplained Change in Mental Status Sepsis Action Taken by Nursing 12/19/19 15:30 12/19/19 15:31 12/19/19 15:40 Temperature Temperature Source Pulse Rate 89 88 91 H Pulse Rate [Apical] Pulse Rate from SpO2 Sensor 90 87 91 H Pulse Rhythm [Apical] Respiratory Rate 27 H 30 H 25 H Respiratory Effort / Characteristics Blood Pressure 157/103 H Blood Pressure Mean 112 Pulse Oximetry 95 97 96 Oxygen Delivery Method Sepsis Recent Fever Within 48 Hours Sepsis New/Unexplained Change in Mental Status Sepsis Action Taken by Nursing 12/19/19 16:08 Temperature Temperature Source Pulse Rate Pulse Rate [Apical] Pulse Rate from SpO2 Sensor Pulse Rhythm [Apical] Respiratory Rate Respiratory Effort / Characteristics Blood Pressure Blood Pressure Mean Pulse Oximetry Oxygen Delivery Method Room Air Sepsis Recent Fever Within 48 Hours Sepsis New/Unexplained Change in Mental Status Sepsis Action Taken by Correction Medications Current Medication List: was personally reviewed by me Laboratory Data Attestation: I reviewed the patient's lab results. Result diagrams: 12/19/19 10:58 12/19/19 10:58 Lab Results 12/19/19 12/19/19 12/19/19 Range/Units 10:39 10:39 10:58 WBC 5.15 (4.8-10.8) K/uL RBC 4.73 (4.2-5.4) M/uL Hgb 14.7 (12.0-16.0) g/dL Hct 43.5 (37-47) % MCV 92.0 (80-100) fL MCH 31.1 (25-34) pg MCHC 33.8 (32-36) g/dL RDW Std Deviation 41.1 (36.4-46.3) fL RDW Coeff of Dk 12.1 (11.5-14.5) % Plt Count 244 (130-400) K/uL MPV 10.1 (7.4-10.4) fL Immature Gran % (Auto) 0.2 % Neut % (Auto) 44.1 % Lymph % (Auto) 43.3 % [place] % (Auto) 9.1 % Eos % (Auto) 2.9 % Baso % (Auto) 0.4 % Immature Gran # (Auto) 0.01 (0.00-0.02) K/uL Neut # (Auto) 2.27 (1.4-6.5) K/uL Lymph # (Auto) 2.23 (1.2-3.4) K/uL [place] # (Auto) 0.47 (0.11-0.59) K/uL Eos # (Auto) 0.15 (0-0.5) K/uL Baso # (Auto) 0.02 (0-0.2) K/uL PT INR APTT PTT Ratio Sodium (136-145) mmol/L Potassium (3.5-5.1) mmol/L Chloride (98-107) mmol/L Carbon Dioxide (21-32) mmol/L Anion Gap (3-11) BUN (7-18) mg/dl Creatinine (0.6-1.2) mg/dl Est Cr Clr Drug Dosing ml/min Est GFR ( Amer) Est GFR (Non-Af Amer) BUN/Creatinine Ratio (10-20) Glucose (70-99) mg/dl Lactate (0.4-2.0) mmol/L Calcium (8.5-10.1) mg/dl Total Bilirubin (0.2-1) mg/dl AST (15-37) U/L ALT (12-78) U/L Alkaline Phosphatase (45-117) U/L Troponin I (0-0.045) ng/ml Total Protein (6.4-8.2) gm/dl Albumin (3.4-5.0) gm/dl Globulin (2.5-4.0) gm/dl Albumin/Globulin Ratio (0.9-2) Adenovirus (PCR) Not Detected (NotDetected) B. pertussis DNA (PCR) Not Detected (NotDetected) B.parapertussis DNA PCR Not Detected (NotDetected) C. pneumoniae DNA (PCR) Not Detected (NotDetected) Coronavirus OC43 (PCR) Not Detected (NotDetected) Coronavirus HKU1 (PCR) Not Detected (NotDetected) Coronavirus 229E (PCR) Not Detected (NotDetected) Coronavirus NL63 (PCR) Not Detected (NotDetected) Human Metapneumovir PCR DETECTED A* (NotDetected) Influenza Type A (PCR) Neg for Influ A Not Detected (Neg) Influenza Type B (PCR) Neg for Influ B Not Detected (Neg) M. pneumoniae (PCR) Not Detected (NotDetected) Parainfluenza 1 (PCR) Not Detected (NotDetected) Parainfluenza 2 (PCR) Not Detected (NotDetected) Parainfluenza 3 (PCR) Not Detected (NotDetected) Parainfluenza 4 (PCR) Not Detected (NotDetected) RSV (PCR) Not Detected (NotDetected) Entero/Rhino (PCR) Not Detected (NotDetected) 12/19/19 12/19/19 12/19/19 Range/Units 10:58 10:58 11:55 WBC (4.8-10.8) K/uL RBC (4.2-5.4) M/uL Hgb (12.0-16.0) g/dL Hct (37-47) % MCV (80-100) fL MCH (25-34) pg MCHC (32-36) g/dL RDW Std Deviation (36.4-46.3) fL RDW Coeff of Dk (11.5-14.5) % Plt Count (130-400) K/uL MPV (7.4-10.4) fL Immature Gran % (Auto) % Neut % (Auto) % Lymph % (Auto) % [place] % (Auto) % Eos % (Auto) % Baso % (Auto) % Immature Gran # (Auto) (0.00-0.02) K/uL Neut # (Auto) (1.4-6.5) K/uL Lymph # (Auto) (1.2-3.4) K/uL [place] # (Auto) (0.11-0.59) K/uL Eos # (Auto) (0-0.5) K/uL Baso # (Auto) (0-0.2) K/uL PT Cancelled INR Cancelled APTT Cancelled PTT Ratio Cancelled Sodium 140 (136-145) mmol/L Potassium 4.0 (3.5-5.1) mmol/L Chloride 112 H (98-107) mmol/L Carbon Dioxide 21 (21-32) mmol/L Anion Gap 7.0 (3-11) BUN 12 (7-18) mg/dl Creatinine 0.66 (0.6-1.2) mg/dl Est Cr Clr Drug Dosing 122.2 ml/min Est GFR ( Amer) 124.5 Est GFR (Non-Af Amer) 107.4 BUN/Creatinine Ratio 17.7 (10-20) Glucose 73 (70-99) mg/dl Lactate 1.7 (0.4-2.0) mmol/L Calcium 9.3 (8.5-10.1) mg/dl Total Bilirubin 0.3 (0.2-1) mg/dl AST 19 (15-37) U/L ALT 31 (12-78) U/L Alkaline Phosphatase 79 (45-117) U/L Troponin I < 0.015 (0-0.045) ng/ml Total Protein 7.5 (6.4-8.2) gm/dl Albumin 3.7 (3.4-5.0) gm/dl Globulin 3.8 (2.5-4.0) gm/dl Albumin/Globulin Ratio 1.0 (0.9-2) Adenovirus (PCR) (NotDetected) B. pertussis DNA (PCR) (NotDetected) B.parapertussis DNA PCR (NotDetected) C. pneumoniae DNA (PCR) (NotDetected) Coronavirus OC43 (PCR) (NotDetected) Coronavirus HKU1 (PCR) (NotDetected) Coronavirus 229E (PCR) (NotDetected) Coronavirus NL63 (PCR) (NotDetected) Human Metapneumovir PCR (NotDetected) Influenza Type A (PCR) (Neg) Influenza Type B (PCR) (Neg) M. pneumoniae (PCR) (NotDetected) Parainfluenza 1 (PCR) (NotDetected) Parainfluenza 2 (PCR) (NotDetected) Parainfluenza 3 (PCR) (NotDetected) Parainfluenza 4 (PCR) (NotDetected) RSV (PCR) (NotDetected) Entero/Rhino (PCR) (NotDetected) 12/19/19 Range/Units 11:55 WBC (4.8-10.8) K/uL RBC (4.2-5.4) M/uL Hgb (12.0-16.0) g/dL Hct (37-47) % MCV (80-100) fL MCH (25-34) pg MCHC (32-36) g/dL RDW Std Deviation (36.4-46.3) fL RDW Coeff of Dk (11.5-14.5) % Plt Count (130-400) K/uL MPV (7.4-10.4) fL Immature Gran % (Auto) % Neut % (Auto) % Lymph % (Auto) % [place] % (Auto) % Eos % (Auto) % Baso % (Auto) % Immature Gran # (Auto) (0.00-0.02) K/uL Neut # (Auto) (1.4-6.5) K/uL Lymph # (Auto) (1.2-3.4) K/uL [place] # (Auto) (0.11-0.59) K/uL Eos # (Auto) (0-0.5) K/uL Baso # (Auto) (0-0.2) K/uL PT 9.8 INR 0.9 APTT 25.6 PTT Ratio 0.9 Sodium (136-145) mmol/L Potassium (3.5-5.1) mmol/L Chloride (98-107) mmol/L Carbon Dioxide (21-32) mmol/L Anion Gap (3-11) BUN (7-18) mg/dl Creatinine (0.6-1.2) mg/dl Est Cr Clr Drug Dosing ml/min Est GFR ( Amer) Est GFR (Non-Af Amer) BUN/Creatinine Ratio (10-20) Glucose (70-99) mg/dl Lactate (0.4-2.0) mmol/L Calcium (8.5-10.1) mg/dl Total Bilirubin (0.2-1) mg/dl AST (15-37) U/L ALT (12-78) U/L Alkaline Phosphatase (45-117) U/L Troponin I (0-0.045) ng/ml Total Protein (6.4-8.2) gm/dl Albumin (3.4-5.0) gm/dl Globulin (2.5-4.0) gm/dl Albumin/Globulin Ratio (0.9-2) Adenovirus (PCR) (NotDetected) B. pertussis DNA (PCR) (NotDetected) B.parapertussis DNA PCR (NotDetected) C. pneumoniae DNA (PCR) (NotDetected) Coronavirus OC43 (PCR) (NotDetected) Coronavirus HKU1 (PCR) (NotDetected) Coronavirus 229E (PCR) (NotDetected) Coronavirus NL63 (PCR) (NotDetected) Human Metapneumovir PCR (NotDetected) Influenza Type A (PCR) (Neg) Influenza Type B (PCR) (Neg) M. pneumoniae (PCR) (NotDetected) Parainfluenza 1 (PCR) (NotDetected) Parainfluenza 2 (PCR) (NotDetected) Parainfluenza 3 (PCR) (NotDetected) Parainfluenza 4 (PCR) (NotDetected) RSV (PCR) (NotDetected) Entero/Rhino (PCR) (NotDetected) Administered Medications Discontinued Medications Albuterol (Duoneb) 3 ml INH NOW STA Stop: 12/19/19 10:44 Last Admin: 12/19/19 11:35 Dose: 3 ml Documented by: [id number] Albuterol (Duoneb) 3 ml NEB NOW STA Stop: 12/19/19 11:49 Last Admin: 12/19/19 12:35 Dose: 3 ml Documented by: [id number] Methylprednisolone 60 mg/ (Syringe) 1.96 mls @ 1.5 mls/min IV NOW STA Stop: 12/19/19 10:44 Last Admin: 12/19/19 11:35 Dose: Not Given Documented by: [id number] Methylprednisolone (Solumedrol) Confirm Administered Dose 125 mg .ROUTE .STK-MED ONE Stop: 12/19/19 11:22 Last Admin: 12/19/19 11:35 Dose: 60 mg Documented by: [id number] Imaging Data Radiologist's Impression: Chest film did not show pneumonia, CHF or pneumothora x. Blood Pressure Blood Pressure Findings: Elevated blood pressure Blood Pressure Disposition: further management by hospitalist Discharge Plan Visit Data Chief Complaint: Illness Stated Complaint: COUGH, FEVER, SOB, CHEST PAIN ED Provider: Alverto Urena Discharge Problem: Acute respiratory distress, Wheezing, Acute bronchitis, Failure of outpatient treatment Patient Disposition: Being Evaluated by Hospitalist Condition: Fair Discharge Instructions Interventions: ED Discharge Assessment Last Done: 12/19/19 16:08 Discharge Problem: Acute bronchitis Qualifiers: Bronchitis organism: unspecified organism Qualified Code(s): J20.9 - Acute bronchitis, unspecified
[2019-12-19 11:18] LABS: Basophils # (auto) 0.02 K/uL (0-0.2); Basophils % (auto) 0.4 %; Eosinophils # (auto) 0.15 K/uL (0-0.5); Eosinophils % (auto) 2.9 %; Hematocrit (blood only) 43.5 % (37-47); Hemoglobin 14.7 g/dL (12.0-16.0); Immature Granulocytes # (auto) 0.01 K/uL (0.00-0.02); Immature Granulocytes % (auto) 0.2 %; Lymphocytes # (auto) 2.23 K/uL (1.2-3.4); Lymphocytes % (auto) 43.3 %; Mean Corpuscular Hemoglobin 31.1 pg (25-34); Mean Corpuscular Hgb Conc 33.8 g/dL (32-36); Mean Platelet Volume 10.1 fL (7.4-10.4); Monocytes # (auto) 0.47 K/uL (0.11-0.59); Monocytes % (auto) 9.1 %; Neutrophils # (auto) 2.27 K/uL (1.4-6.5); Neutrophils % (auto) 44.1 %; Platelet Count 244 K/uL (130-400); RDW Coefficient of Variation 12.1 % (11.5-14.5); RDW Standard Deviation 41.1 fL (36.4-46.3); Red Blood Count 4.73 M/uL (4.2-5.4); White Blood Count 5.15 K/uL (4.8-10.8)
[2019-12-19] MEDS ORDERED: methylPREDNISolone 125 MG/2 ML VIAL ONE (11:21)
--- NOTE | 2019-12-19 11:32 | XRay Report ---
XR chest 1V portable CLINICAL HISTORY: SOB dyspnea COMPARISON STUDY: 12/14/2019 FINDINGS: The bones soft tissues and hemidiaphragms are normal. The cardiomediastinal silhouette is n ormal. The lungs are clear. The pulmonary vasculature is normal. IMPRESSION: Negative chest. ACT 112: Negative or not required by law. The above report was generated using voice recognition software. It may contain grammatical, syntax or spelling errors. Electronically signed by: Allan Barnes M.D. 12/19/2019 11:31 AM
[2019-12-19 11:35] LABS: Alanine Aminotransferase 31 U/L (12-78); Albumin Level 3.7 gm/dl (3.4-5.0); Aspartate Aminotransferase 19 U/L (15-37); BUN Creatinine Ratio 17.7 (10-20); Blood Urea Nitrogen 12 mg/dl (7-18); Calcium 9.3 mg/dl (8.5-10.1); Carbon Dioxide 21 mmol/L (21-32); Chloride 112 mmol/L (98-107); Creatinine Clr Calc Pharmacy 122.2 ml/min; Est GFR (African American) 124.5; Est GFR (Non-African American) 107.4; Glucose 73 mg/dl (70-99); Sodium 140 mmol/L (136-145)
[2019-12-19 11:39] LABS: Alkaline Phosphatase 79 U/L (45-117); Bilirubin,Total 0.3 mg/dl (0.2-1); Globulin 3.8 gm/dl (2.5-4.0); Total Protein 7.5 gm/dl (6.4-8.2); Troponin I < 0.015 ng/ml (0-0.045)
[2019-12-19 11:48] LABS: Influenza A virus by PCR Neg for Influ A (Neg); Influenza B virus by PCR Neg for Influ B (Neg)
[2019-12-19] MEDS ORDERED: ALBUT/IPRATROP 3MG/0.5MG NEB 3 ML VIAL NEB STA (11:48)
[2019-12-19 12:24] LABS: INR 0.9 (0.9-1.1); Partial Thromboplastin Ratio 0.9; Partial Thromboplastin Time 25.6 Seconds (21.0-31.0); Prothrombin Time 9.8 Seconds (9.0-12.0)
[2019-12-19 13:22] LABS: Adenovirus PCR Not Detected (NotDetected); Bordetella parapertussis PCR Not Detected (NotDetected); Bordetella pertussis PCR Not Detected (NotDetected); Chlamydia pneumoniae PCR Not Detected (NotDetected); Coronavirus 229E PCR Not Detected (NotDetected); Coronavirus HKU1 PCR Not Detected (NotDetected); Coronavirus NL63 PCR Not Detected (NotDetected); Coronavirus OC43PCR Not Detected (NotDetected); Influenza A PCR Not Detected (NotDetected); Influenza B PCR Not Detected (NotDetected); Mycoplasma pneumoniae PCR Not Detected (NotDetected); Parainfluenza Virus 1 PCR Not Detected (NotDetected); Parainfluenza Virus 2 PCR Not Detected (NotDetected); Parainfluenza Virus 3 PCR Not Detected (NotDetected); Parainfluenza Virus 4 PCR Not Detected (NotDetected); Respiratory Syncytial VirusPCR Not Detected (NotDetected); Rhinovirus/Enterovirus PCR Not Detected (NotDetected)
[2019-12-19 13:23] LABS: Human Metapneumovirus PCR DETECTED (NotDetected)
--- NOTE | 2019-12-19 15:13 | History & Physical Report ---
Date of Service December 19, 2019 Assessment & Plan (1) Respiratory distress: - Presented with SOB and cough -- likely related to acute infection in setting of human metapneumovirus. - Currently stable on room air; did have improvement with nebulizer treatments. - CXR was neg for PNA; Lactate level WNL; no leukocytosis noted on labs. - Influenza by PCR negative; Biofire +Human metapneumovirus -- no indication for COVID-19 testing. - Sputum culture pending; no indication for abx coverage at this time. - Xopenex q6hr scheduled with q2hr prn (avoid albuterol due to tachycardia). - Solu-medrol 60 mg IV in the ER; will continue Prednisone 40 mg PO daily. - Mucinex DM prn cough. (2) Infection due to human metapneumovirus (hMPV): - As noted above, diagnosed via biofire. (3) Tachycardia: - HR 110's on monitor; related to dehydration vs. acute infection vs. recent albuterol treatment. - Admit to tele for close monitoring. - IV fluid hydration - has likely had limited PO intake at home. - Consider ruling out PE in setting of resp distress and tachycardia; patient does not have any major risk factors for development of PE, therefore will hold study at this time. (4) Arthritis: - ?Poly-inflammatory arthritis, has not been officially diagnosed with RA yet. - Follows with Dr. Fermin. - Holding home Plaquenil; last dose of Humira on 12/11/19. - MTX has been discontinued; continue folic acid supplementation. (5) Allergic rhinitis: - Noted, will monitor. (6) DVT prophylaxis: - SCDs; Lovenox q24hr. Dispo: Med/surg with tele for observation status; can likely be discharged to home on 12/20/19. History of Present Illness Chief Complaint: Shortness of breath Primary Care Provider: Salome Esquivel MD Mrs. Spears is a 44 year old female with past medical history of poly- inflammatory arthritis, allergic rhinitis who presented with shortness of breath. Pt. states she developed an acute illness on Sunday12/14/19, including cough and shortness of breath. She had an increase in shortness of breath, both at rest and with exertion, starting Sunday12/17/19. Has mild sputum production noted, green-yellow. C/o right sided chest pain, located underneath shoulder/axilla area. Pain is increased with coughing episodes, denies increased pain with inspiration/expiration. Denies nasal congestion/sinus pressure, pharyngitis, headaches, abd pain, N/V, diarrhea or constipation, dysuria or hematuria. 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 ER course: CXR was negative. Trop was <0.015. Lactate level 1.7. Influenza by PCR was negative. Biofiore +human metapneumovirus. She received Duonebs and Solu-medrol 60 mg IV with improvement. Will admit for observation due to tachypnea, tachycardia and mild respiratory distress. Allergies Allergy/AdvReac Type Severity Reaction Status Date / Time codeine Allergy Intermediate HIVES Verified 12/19/19 11:15 egg Allergy Intermediate HIVES Verified 12/19/19 11:15 morphine Allergy Intermediate HIVES Verified 12/19/19 11:15 ondansetron Allergy Intermediate HIVES Verified 12/19/19 11:15 oxycodone Allergy Intermediate HIVES Verified 12/19/19 11:15 sulfamethoxazole Allergy Intermediate hives Verified 12/19/19 11:15 trimethoprim Allergy Intermediate hives Verified 12/19/19 11:15 tuberculin, purified protein Allergy Mild RASH Verified 12/19/19 11:15 deriva Bactrim Allergy Unknown hives Verified 02/23/18 11:08 Home Medications Home Medications Medication Instructions Recorded Confirmed Type folic acid 1 mg PO QAM 11/25/18 12/19/19 History hydroxychloroquine [Plaquenil] 400 mg PO HS 11/25/18 12/19/19 History methotrexate sodium 20 mg IM WK 11/25/18 12/19/19 History acetaminophen [Tylenol Arthritis 650 mg PO BID 09/27/19 12/19/19 History Pain] adalimumab [Humira] 0.8 mg SUBCUT UD 09/27/19 12/19/19 History biotin 5,000 mcg SUBLINGUAL QAM 09/27/19 12/19/19 History fexofenadine [Anaid Allergy] 180 mg PO QAM 09/27/19 12/19/19 History promethazine 25 - 50 mg PO Q6H PRN #20 tab 09/27/19 12/19/19 Rx albuterol sulfate [Ventolin HFA] 2 puff INHALATION QID PRN 12/19/19 12/19/19 History ascorbic acid (vitamin C) [Vitamin 1,000 mg PO QAM 12/19/19 12/19/19 History C] benzonatate 100 mg PO TID 12/19/19 12/19/19 History cholecalciferol (vitamin D3) 1,000 unit PO QAM 12/19/19 12/19/19 History [Vitamin D3] [id number]-NG-lhgxdszjdpknd [Vicks 15 ml PO UD PRN 12/19/19 12/19/19 History Nyquil Nighttime Relief] ibuprofen 400 mg PO Q6H PRN 12/19/19 12/19/19 History ipratropium bromide 2 spray INTRANASAL BID PRN 12/19/19 12/19/19 History mgrlqdqsk-UY-mkpaxqxb-guaifen 20 ml PO TID 12/19/19 12/19/19 History [Tussin CF Max Severe M-S Cold] Past Med/Surg History Medical History Acute abdominal pain (Resolved) Acute abdominal pain (Resolved) Diarrhea (Resolved) Lower abdominal pain (Resolved) Lumbar disc herniation with radiculopathy (Resolved 08/04/14) Lumbar stenosis with neurogenic claudication (Resolved 08/05/14) Mastitis in female (Resolved) Right-sided chest wall pain (Resolved) UTI (urinary tract infection) (Resolved) Vomiting (Resolved) Surgical History H/O: hysterectomy History of lumbar fusion Hx of cholecystectomy Family History Other No significant family history Social History Preferred Language: German Communication Ability: Effective 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 Required: No Beliefs That Will Affect Care: None marital status: Current Living Situation: Spouse Feels Safe at Home: Yes Safety Concerns: Feels Safe At This Time Smoking Status: Former smoker Hx Alcohol Use: Yes Alcohol type: wine Hx Substance Use: No Review of Systems Review of Systems: All systems reviewed & are unremarkable except as noted in HPI & below Constitutional: + fatigue, + weakness and + anorexia; no fever and no chills Ear, Nose, Mouth, Throat: no nasal discharge, no post nasal drip, no sinus pain/pressure and no sore throat Respiratory: + cough, + chest congestion, + dyspnea, + dyspnea on exertion, + sputum production and + wheezing Cardiovascular: + chest pain; no radiating jaw, neck or arm pain, no palpitations, no lightheadedness and no edema Gastrointestinal: no abdominal pain, no nausea, no vomiting, no constipation and no diarrhea/loose stools Genitourinary: no dysuria, no difficulty urinating, no urinary frequency and no hematuria Musculoskeletal: no back pain and no joint pain Integumentary: no non-healing lesions Physical Exam Physical Exam: General: Mild distress related to respiratory issues. HEENT: NC/AT; PERRLA with EOMI; [place] conjunctiva, MMM. No erythema of posterior pharynx Neck: Supple and nontender Cardiac: Tachycardic Lungs: Room air; scattered wheezing and rhonchi noted throughout all lung hernandez. Abdomen: Bowel normoactive X 4; Nontender to palpation Extremities: Warm. No edema present Neuro: No focal weakness Skin: No rash Results & Data Vital Signs (Past 12 Hours) Vital Signs Temp Pulse Pulse Resp BP Pulse Ox 12/19/19 14:31 81 25 H 115/88 97 12/19/19 14:00 89 21 95 12/19/19 13:31 87 23 98 12/19/19 13:30 83 20 113/87 96 12/19/19 13:01 65 29 H 98 12/19/19 13:00 66 26 H 125/71 98 12/19/19 12:31 64 20 129/71 98 12/19/19 12:30 62 26 H 98 12/19/19 12:01 64 23 100 12/19/19 12:00 62 24 123/77 100 12/19/19 11:31 61 23 120/73 98 12/19/19 11:30 64 28 H 12/19/19 11:00 80 74 27 H 97 12/19/19 10:43 78 16 96 12/19/19 10:08 36.7 C 85 22 178/89 H 98 Laboratory Results 12/19/19 12/19/19 12/19/19 Range/Units 11:55 11:55 10:58 WBC (4.8-10.8) K/uL RBC (4.2-5.4) M/uL Hgb (12.0-16.0) g/dL Hct (37-47) % MCV (80-100) fL MCH (25-34) pg MCHC (32-36) g/dL RDW Std Deviation (36.4-46.3) fL RDW Coeff of Dk (11.5-14.5) % Plt Count (130-400) K/uL MPV (7.4-10.4) fL Immature Gran % (Auto) % Neut % (Auto) % Lymph % (Auto) % Newton % (Auto) % Eos % (Auto) % Baso % (Auto) % Immature Gran # (Auto) (0.00-0.02) K/uL Neut # (Auto) (1.4-6.5) K/uL Lymph # (Auto) (1.2-3.4) K/uL Newton # (Auto) (0.11-0.59) K/uL Eos # (Auto) (0-0.5) K/uL Baso # (Auto) (0-0.2) K/uL PT 9.8 INR 0.9 APTT 25.6 PTT Ratio 0.9 Sodium 140 (136-145) mmol/L Potassium 4.0 (3.5-5.1) mmol/L Chloride 112 H (98-107) mmol/L Carbon Dioxide 21 (21-32) mmol/L Anion Gap 7.0 (3-11) BUN 12 (7-18) mg/dl Creatinine 0.66 (0.6-1.2) mg/dl Est Cr Clr Drug Dosing 122.2 ml/min Est GFR ( Amer) 124.5 Est GFR (Non-Af Amer) 107.4 BUN/Creatinine Ratio 17.7 (10-20) Glucose 73 (70-99) mg/dl Lactate 1.7 (0.4-2.0) mmol/L Calcium 9.3 (8.5-10.1) mg/dl Total Bilirubin 0.3 (0.2-1) mg/dl AST 19 (15-37) U/L ALT 31 (12-78) U/L Alkaline Phosphatase 79 (45-117) U/L Troponin I < 0.015 (0-0.045) ng/ml Total Protein 7.5 (6.4-8.2) gm/dl Albumin 3.7 (3.4-5.0) gm/dl Globulin 3.8 (2.5-4.0) gm/dl Albumin/Globulin Ratio 1.0 (0.9-2) Adenovirus (PCR) (NotDetected) B. pertussis DNA (PCR) (NotDetected) B.parapertussis DNA PCR (NotDetected) C. pneumoniae DNA (PCR) (NotDetected) Coronavirus OC43 (PCR) (NotDetected) Coronavirus HKU1 (PCR) (NotDetected) Coronavirus 229E (PCR) (NotDetected) Coronavirus NL63 (PCR) (NotDetected) Human Metapneumovir PCR (NotDetected) Influenza Type A (PCR) (Neg) Influenza Type B (PCR) (Neg) M. pneumoniae (PCR) (NotDetected) Parainfluenza 1 (PCR) (NotDetected) Parainfluenza 2 (PCR) (NotDetected) Parainfluenza 3 (PCR) (NotDetected) Parainfluenza 4 (PCR) (NotDetected) RSV (PCR) (NotDetected) Entero/Rhino (PCR) (NotDetected) 12/19/19 12/19/19 12/19/19 Range/Units 10:58 10:58 10:39 WBC 5.15 (4.8-10.8) K/uL RBC 4.73 (4.2-5.4) M/uL Hgb 14.7 (12.0-16.0) g/dL Hct 43.5 (37-47) % MCV 92.0 (80-100) fL MCH 31.1 (25-34) pg MCHC 33.8 (32-36) g/dL RDW Std Deviation 41.1 (36.4-46.3) fL RDW Coeff of Dk 12.1 (11.5-14.5) % Plt Count 244 (130-400) K/uL MPV 10.1 (7.4-10.4) fL Immature Gran % (Auto) 0.2 % Neut % (Auto) 44.1 % Lymph % (Auto) 43.3 % Newton % (Auto) 9.1 % Eos % (Auto) 2.9 % Baso % (Auto) 0.4 % Immature Gran # (Auto) 0.01 (0.00-0.02) K/uL Neut # (Auto) 2.27 (1.4-6.5) K/uL Lymph # (Auto) 2.23 (1.2-3.4) K/uL Newton # (Auto) 0.47 (0.11-0.59) K/uL Eos # (Auto) 0.15 (0-0.5) K/uL Baso # (Auto) 0.02 (0-0.2) K/uL PT Cancelled INR Cancelled APTT Cancelled PTT Ratio Cancelled Sodium (136-145) mmol/L Potassium (3.5-5.1) mmol/L Chloride (98-107) mmol/L Carbon Dioxide (21-32) mmol/L Anion Gap (3-11) BUN (7-18) mg/dl Creatinine (0.6-1.2) mg/dl Est Cr Clr Drug Dosing ml/min Est GFR ( Amer) Est GFR (Non-Af Amer) BUN/Creatinine Ratio (10-20) Glucose (70-99) mg/dl Lactate (0.4-2.0) mmol/L Calcium (8.5-10.1) mg/dl Total Bilirubin (0.2-1) mg/dl AST (15-37) U/L ALT (12-78) U/L Alkaline Phosphatase (45-117) U/L Troponin I (0-0.045) ng/ml Total Protein (6.4-8.2) gm/dl Albumin (3.4-5.0) gm/dl Globulin (2.5-4.0) gm/dl Albumin/Globulin Ratio (0.9-2) Adenovirus (PCR) Not Detected (NotDetected) B. pertussis DNA (PCR) Not Detected (NotDetected) B.parapertussis DNA PCR Not Detected (NotDetected) C. pneumoniae DNA (PCR) Not Detected (NotDetected) Coronavirus OC43 (PCR) Not Detected (NotDetected) Coronavirus HKU1 (PCR) Not Detected (NotDetected) Coronavirus 229E (PCR) Not Detected (NotDetected) Coronavirus NL63 (PCR) Not Detected (NotDetected) Human Metapneumovir PCR DETECTED A* (NotDetected) Influenza Type A (PCR) Not Detected (Neg) Influenza Type B (PCR) Not Detected (Neg) M. pneumoniae (PCR) Not Detected (NotDetected) Parainfluenza 1 (PCR) Not Detected (NotDetected) Parainfluenza 2 (PCR) Not Detected (NotDetected) Parainfluenza 3 (PCR) Not Detected (NotDetected) Parainfluenza 4 (PCR) Not Detected (NotDetected) RSV (PCR) Not Detected (NotDetected) Entero/Rhino (PCR) Not Detected (NotDetected) 12/19/19 Range/Units 10:39 WBC (4.8-10.8) K/uL RBC (4.2-5.4) M/uL Hgb (12.0-16.0) g/dL Hct (37-47) % MCV (80-100) fL MCH (25-34) pg MCHC (32-36) g/dL RDW Std Deviation (36.4-46.3) fL RDW Coeff of Dk (11.5-14.5) % Plt Count (130-400) K/uL MPV (7.4-10.4) fL Immature Gran % (Auto) % Neut % (Auto) % Lymph % (Auto) % Newton % (Auto) % Eos % (Auto) % Baso % (Auto) % Immature Gran # (Auto) (0.00-0.02) K/uL Neut # (Auto) (1.4-6.5) K/uL Lymph # (Auto) (1.2-3.4) K/uL Newton # (Auto) (0.11-0.59) K/uL Eos # (Auto) (0-0.5) K/uL Baso # (Auto) (0-0.2) K/uL PT INR APTT PTT Ratio Sodium (136-145) mmol/L Potassium (3.5-5.1) mmol/L Chloride (98-107) mmol/L Carbon Dioxide (21-32) mmol/L Anion Gap (3-11) BUN (7-18) mg/dl Creatinine (0.6-1.2) mg/dl Est Cr Clr Drug Dosing ml/min Est GFR ( Amer) Est GFR (Non-Af Amer) BUN/Creatinine Ratio (10-20) Glucose (70-99) mg/dl Lactate (0.4-2.0) mmol/L Calcium (8.5-10.1) mg/dl Total Bilirubin (0.2-1) mg/dl AST (15-37) U/L ALT (12-78) U/L Alkaline Phosphatase (45-117) U/L Troponin I (0-0.045) ng/ml Total Protein (6.4-8.2) gm/dl Albumin (3.4-5.0) gm/dl Globulin (2.5-4.0) gm/dl Albumin/Globulin Ratio (0.9-2) Adenovirus (PCR) (NotDetected) B. pertussis DNA (PCR) (NotDetected) B.parapertussis DNA PCR (NotDetected) C. pneumoniae DNA (PCR) (NotDetected) Coronavirus OC43 (PCR) (NotDetected) Coronavirus HKU1 (PCR) (NotDetected) Coronavirus 229E (PCR) (NotDetected) Coronavirus NL63 (PCR) (NotDetected) Human Metapneumovir PCR (NotDetected) Influenza Type A (PCR) Neg for Influ A (Neg) Influenza Type B (PCR) Neg for Influ B (Neg) M. pneumoniae (PCR) (NotDetected) Parainfluenza 1 (PCR) (NotDetected) Parainfluenza 2 (PCR) (NotDetected) Parainfluenza 3 (PCR) (NotDetected) Parainfluenza 4 (PCR) (NotDetected) RSV (PCR) (NotDetected) Entero/Rhino (PCR) (NotDetected) Code Status & VTE Plan Code Status FULL CODE VTE Prophylaxis Plan VTE Prophylaxis will be ordered: Yes Supervising Physician Co-Signing Physician Notes Patient seen and examined with Marlene ORR. I agree with her exam findings, review of systems, assessment and plan. I personally reviewed the lab work and imaging as well. patient seen in the ED, obvious work of breathing she said she had been sick for a week, got worse a few days ago some fevers at home has a at home, he is not sick, no recent travel she takes Humira for inflammatory arthritis so she has some immunosuppression - Acute viral pneumonia, tested positive for metapneumovirus, influenza negative no infiltrates seen on the CXR will treat with steroids, nebulizers (she said she got significant relief from the breathing treatment in the ED) no concern for coronavirus, no known risk factors, tested positive for metapneumovirus hopeful that she will feel better tomorrow morning and will try to discharge although she is not hypoxic, she does have increased work of breathing and with her immunosuppression want to make sure she does not decompensate PG Care Time/CCT Total # of Minutes Spent Total Time Spent with Patient: Total time spent is greater than 50% in coordination of care (as documented) at patient's floor/unit and/or counseling patient: Coding Level of Care Code 77763 OBS Care - Level 3 Diagnoses Respiratory distress R06.03 Infection due to human metapneumovirus (hMPV) B97.81 Tachycardia R00.0 Arthritis M19.90 Allergic rhinitis J30.9 DVT prophylaxis Z29.9
[2019-12-19] MEDS ORDERED: ACETAMINOPHEN 325 MG TAB PO PRN (16:22)
[2019-12-19] MEDS: SODIUM CHLORIDE 0.9% 1000ML 1,000 ML IV SCH (16:54)
[2019-12-19] MEDS ORDERED: IBUPROFEN 600 MG TAB PO PRN (17:15)
[2019-12-19] MEDS: LEVALBUTEROL HCL 0.63 MG/3 ML NEB NEB PRN (17:16)
--- NOTE | 2019-12-19 18:13 | Electrocardiogram Report ---
Test Reason : Blood Pressure : / mmHG Vent. Rate : 068 BPM Atrial Rate : 068 BPM P-R Int : 162 ms QRS Dur : 092 ms QT Int : 396 ms P-R-T Axes : 018 -06 012 degrees QTc Int : 421 ms Poor data quality, interpretation may be adversely affected Normal sinus rhythm Poor R wave progression, consider anterior VA vs. lead placement vs. LVH Abnormal ECG When compared with ECG of 14-MAR-2017 08:44, No significant change was found Confirmed by Manfred Calvin [id number]) on 12/19/2019 6:12:47 PM Referred By: REFERRED SELF Confirmed By:Manfred Calvin
[2019-12-19] MEDS: LEVALBUTEROL HCL 0.63 MG/3 ML NEB NEB SCH (19:57)
[2019-12-20] MEDS: GUAIFENESIN/DEXTROM SYRUP 200MG/20MG 10ML UDC PO PRN ×2 (00:07→08:48)
[2019-12-20] MEDS: LEVALBUTEROL HCL 0.63 MG/3 ML NEB NEB SCH ×2 (01:09→07:48)
[2019-12-20] MEDS: SODIUM CHLORIDE 0.9% 1000ML 1,000 ML IV SCH (05:08)
[2019-12-20 06:37] LABS: Hematocrit (blood only) 39.2 % (37-47); Hemoglobin 13.2 g/dL (12.0-16.0); Mean Corpuscular Hemoglobin 31.2 pg (25-34); Mean Corpuscular Hgb Conc 33.7 g/dL (32-36); Mean Corpuscular Volume 92.7 fL (80-100); Mean Platelet Volume 9.8 fL (7.4-10.4); Platelet Count 249 K/uL (130-400); RDW Coefficient of Variation 12.4 % (11.5-14.5); Red Blood Count 4.23 M/uL (4.2-5.4)
[2019-12-20 06:53] LABS: Calcium 8.8 mg/dl (8.5-10.1); Creatinine Clr Calc Pharmacy 143.3 ml/min; Est GFR (African American) 131.4; Est GFR (Non-African American) 113.4; Potassium 3.7 mmol/L (3.5-5.1)
[2019-12-20] MEDS ORDERED: CHOLECALCIFEROL 1,000 UNITS 25 MCG TAB PO SCH (09:00)
[2019-12-20] MEDS ORDERED: predniSONE 20 MG TAB PO SCH (09:00)
[2019-12-20] MEDS ORDERED: FOLIC ACID 1 MG TAB PO SCH (09:00)
[2019-12-20] MEDS ORDERED: ENOXAPARIN INJ 40 MG/0.4 ML SYR SQ SCH (09:00)
[2019-12-20] MEDS: LEVALBUTEROL HCL 0.63 MG/3 ML NEB NEB PRN (11:12)
--- NOTE | 2019-12-20 12:12 | Discharge Summary ---
Date of Service December 20, 2019 Admission HPI Per Admitting Provider Mrs. Spears is a 44 year old female with past medical history of poly- inflammatory arthritis, allergic rhinitis who presented with shortness of breath. Pt. states she developed an acute illness on Sunday12/14/19, including cough and shortness of breath. She had an increase in shortness of breath, both at rest and with exertion, starting Sunday12/17/19. Has mild sputum production noted, green-yellow. C/o right sided chest pain, located underneath shoulder/axilla area. Pain is increased with coughing episodes, denies increased pain with inspiration/expiration. Denies nasal congestion/sinus pressure, pharyngitis, headaches, abd pain, N/V, diarrhea or constipation, dysuria or hematuria. 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 ER course: CXR was negative. Trop was <0.015. Lactate level 1.7. Influenza by PCR was negative. Biofiore +human metapneumovirus. She received Duonebs and Solu-medrol 60 mg IV with improvement. Will admit for observation due to tachypnea, tachycardia and mild respiratory distress. Principal Diagnosis Acute viral pneumonia with metapneumovirus Discharge Exam Constitutional WD/WN, vitals as above no acute distress and not ill appearing Eyes PERRL, conjunctivae normal, anicteric sclerae ENMT external ear and nose normal, oropharynx normal Neck trachea midline, no thyromegaly Respiratory normal respiratory effort, lungs clear to auscultation Cardiovascular RRR, no murmur, no edema Gastrointestinal (Abdomen) normal bowel sounds, soft, nontender, no hepatosplenomegaly Musculoskeletal no cyanosis or clubbing, extremities motor strength 5/5 Skin no rashes, warm and dry Neurologic patellar DTR's 2+ bilat, sensation intact and PERRL, EOMI, accommodation nl, no face palsy, no dysarthria Psychiatric A+Ox3, euthymic affect Lymphatic no cervical or axillary lymphadenopathy Discharge Data Allergies Allergy/AdvReac Type Severity Reaction Status Date / Time codeine Allergy Intermediate HIVES Verified 12/19/19 11:15 egg Allergy Intermediate HIVES Verified 12/19/19 11:15 morphine Allergy Intermediate HIVES Verified 12/19/19 11:15 ondansetron Allergy Intermediate HIVES Verified 12/19/19 11:15 oxycodone Allergy Intermediate HIVES Verified 12/19/19 11:15 sulfamethoxazole Allergy Intermediate hives Verified 12/19/19 11:15 trimethoprim Allergy Intermediate hives Verified 12/19/19 11:15 tuberculin, purified protein Allergy Mild RASH Verified 12/19/19 11:15 deriva Bactrim Allergy Unknown hives Verified 02/23/18 11:08 Consultations 12/19/19 14:18 ED Decision to Admit Stat Hospital Course (1) Respiratory distress: - Presented with SOB and cough -- likely related to acute infection in setting of human metapneumovirus. - remained stable on room air, never required oxygen - CXR was neg for PNA; Lactate level WNL; no leukocytosis noted on labs. - Influenza by PCR negative; Biofire +Human metapneumovirus -- no indication for COVID-19 testing. responded well to nebulizers and Solu Medrol, changed to Prednisone this morning plan is to d/c to home on Prednisone 40mg daily x 5 more days prescribed Duoneb and home nebulizer to give her more relief at home no indication for antibiotics get rest, stay well hydrated and well nourished follow up with PCP stay off of work until at least 12/28 (2) Infection due to human metapneumovirus (hMPV): - As noted above, diagnosed via biofire. (3) Tachycardia: - HR 110's on monitor; related to dehydration vs. acute infection vs. recent albuterol treatment. - no arrhythmia on monitor, HR < 100 this morning, improved with IV hydration (4) Arthritis: - ?Poly-inflammatory arthritis, has not been officially diagnosed with RA yet. - Follows with Dr. Fermin. - Holding home Plaquenil; last dose of Humira on 12/11/19. - MTX has been discontinued; continue folic acid supplementation. can follow up closely with Dr. Fermin for further instructions (5) Allergic rhinitis: - Noted, will monitor. (6) DVT prophylaxis: - SCDs; Lovenox q24hr. Total Time Total Time Spent Total Time Spent (In Minutes): 33 minutes Total Time Includes: Examination of the Patient, Discharge Planning and Medication Reconciliation Discharge Plan Discharge Items Patient Disposition: Home - Self-Care Reason For Visit: SHORTNESS OF BREATH Discharge Diagnosis: Viral pneumonia, metapneumovirus Respiratory distress, no hypoxia Condition on Discharge: Good Goals: complete short course of Prednisone use home nebulizer for relief stay well hydrated, well rested Activity: Resume your previous activity Bathing: No limitations Driving/Machine Use: Resume 1 day after discharge Weightbearing: Full weightbearing Non-emergency contact: Primary Care Provider Call non-emergency contact if: you have any medication questions, your symptoms worsen and you have a fever Follow-up/Referrals: Salome Esquivel MD [Primary Care Provider] - (Please call your PCP office and see if they want to follow up after discharge ) Diet: Regular Addtl Attending Provider Instructions: Medications: - PREDNISONE: 40mg daily for 5 more days, no need for taper as duration < 7 days - ALBUTEROL/IPRATROPIUM: breathing treatments via nebulizers, use every 6 hours as needed for shortness of breath or cough Acute viral pneumonia, tested positive for metapneumovirus improved with steroids, fluids, nebulizers no indications for antibiotics, chest x-ray clear, WBC normal please try to get rest and stay well hydrated you have several cough remedies at home, typically the Cherritussin works the best but can be difficult to take will set you up with home nebulizer, the rep can meet you at the store after discharge follow up with Dr. Esquivel in a week Pending Studies at Discharge: No Stand-Alone Forms: My [facility], Work/School Release (Inpt), Smoking Cessation Medications and DC Order Prescriptions: New prednisone 20 mg Tablet 40 mg PO DAILY 5 Days Qty: 10 RF: 0 ipratropium-albuterol 0.5 mg-3 mg(2.5 mg base)/3 mL solution for nebulization 3 ml INH Q6H PRN (Reason: shortness of breath or wheezing) Qty: 90 RF: 1 Continued fexofenadine [Anaid Allergy] 180 mg Tablet 180 mg PO QAM RF: 0 acetaminophen [Tylenol Arthritis Pain] 650 mg Tablet Extended Release 650 mg PO BID RF: 0 Humira 40 mg/0.8 mL Syringe Kit 0.8 mg SUBCUT UD RF: 0 biotin 5,000 mcg Tablet, Sublingual 5,000 mcg SUBLINGUAL QAM RF: 0 promethazine 25 mg tablet 25 - 50 mg PO Q6H PRN (Reason: nausea and vomiting) Qty: 20 RF: 0 methotrexate sodium 25 mg/mL Solution 20 mg IM WK RF: 0 folic acid 1 mg Tablet 1 mg PO QAM RF: 0 hydroxychloroquine [Plaquenil] 200 mg Tablet 400 mg PO HS RF: 0 ascorbic acid (vitamin C) [Vitamin C] 1,000 mg Tablet 1,000 mg PO QAM RF: 0 benzonatate 100 mg capsule 100 mg PO TID RF: 0 ibuprofen 200 mg Tablet 400 mg PO Q6H PRN (Reason: Pain) RF: 0 albuterol sulfate [Ventolin HFA] 90 mcg/actuation HFA aerosol inhaler 2 puff INHALATION QID PRN (Reason: Shortness Of Breath Or Wheezing) RF: 0 ipratropium bromide 0.03 % spray,non-aerosol 2 spray INTRANASAL BID PRN (Reason: Nasal Congestion) RF: 0 cholecalciferol (vitamin D3) [Vitamin D3] 25 mcg (1,000 unit) Tablet,Chewable 1,000 unit PO QAM RF: 0 Vicks Nyquil Nighttime Relief 6.25-15-325 mg/15 mL Liquid 15 ml PO UD PRN (Reason: Cold Symptoms) RF: 0 Tussin CF Max Severe M-S Cold 10-20-650 mg/20 mL Liquid 20 ml PO TID RF: 0 Discharge Orders: Discharge Order (Routine); Ordered 12/20/19 Ordered By: Sai Hamm Admission Data Admit Date/Time: 12/19/19 14:47 Attending Provider: Sai Hamm Admit Provider: Sai Hamm Primary Care Provider: Salome Esquivel Other Providers: Sai Hamm Other Interventions: Discharge Summary Assessment (RN) Last Done: 12/20/19 09:43 DC Date/Time DO NOT enter until pt leaves facility: 12/20/19 12:11 Coding Level of Care Code 90156 OBS Care - Discharge Diagnoses Respiratory distress R06.03 Infection due to human metapneumovirus (hMPV) B97.81 Tachycardia R00.0 Arthritis M19.90 Allergic rhinitis J30.9 DVT prophylaxis Z29.9
== END 2019-12-20 12:11 | disposition home or self-care (01) ==
LOC: 2N 10:03 → ED 10:03 → 2N 16:08

== ENCOUNTER 2021-04-19 16:17 | Observation (INO) ==
[2021-04-19 18:08] LABS: Basophils # (auto) 0.02 K/uL (0-0.2); Basophils % (auto) 0.2 %; Eosinophils # (auto) 0.06 K/uL (0-0.5); Eosinophils % (auto) 0.5 %; Hematocrit (blood only) 44.1 % (37-47); Hemoglobin 14.8 g/dL (12.0-16.0); Immature Granulocytes # (auto) 0.02 K/uL (0.00-0.02); Immature Granulocytes % (auto) 0.2 %; Lymphocytes # (auto) 2.31 K/uL (1.2-3.4); Lymphocytes % (auto) 19.3 %; Mean Corpuscular Hgb Conc 33.6 g/dL (32-36); Mean Corpuscular Volume 95.5 fL (80-100); Mean Platelet Volume 10.7 fL (7.4-10.4); Monocytes # (auto) 0.82 K/uL (0.11-0.59); Monocytes % (auto) 6.9 %; Neutrophils # (auto) 8.74 K/uL (1.4-6.5); Neutrophils % (auto) 72.9 %; Platelet Count 300 K/uL (130-400); RDW Coefficient of Variation 13.1 % (11.5-14.5); RDW Standard Deviation 45.6 fL (36.4-46.3); Red Blood Count 4.62 M/uL (4.2-5.4); White Blood Count 11.97 K/uL (4.8-10.8)
[2021-04-19 18:17] LABS: D Dimer 380 ug/L FEU (0-500)
[2021-04-19 18:20] LABS: Alanine Aminotransferase 31 U/L (12-78); Albumin Level 4.1 gm/dl (3.4-5.0); Aspartate Aminotransferase 21 U/L (15-37); Blood Urea Nitrogen 17 mg/dl (7-18); Calcium 9.2 mg/dl (8.5-10.1); Carbon Dioxide 24 mmol/L (21-32); Chloride 109 mmol/L (98-107); Creatinine Clr Calc Pharmacy 113.7 ml/min; Est GFR (African American) 117.2 ml/min; Est GFR (Non-African American) 101.1 ml/min; Glucose 83 mg/dl (70-99); Lipase 219 U/L (73-393); Magnesium 2.4 mg/dl (1.8-2.4); Potassium 3.9 mmol/L (3.5-5.1); Sodium 139 mmol/L (136-145)
[2021-04-19 18:26] LABS: Alkaline Phosphatase 82 U/L (45-117); Bilirubin,Total 0.4 mg/dl (0.2-1); Globulin 4.3 gm/dl (2.5-4.0); Total Protein 8.4 gm/dl (6.4-8.2); Troponin I < 0.015 ng/ml (0-0.045)
[2021-04-19] MEDS: SODIUM CHLORIDE 0.9% 1000ML 1,000 ML IV SCH (18:29)
--- NOTE | 2021-04-19 18:38 | Emergency Department Note ---
History of Present Illness General Chief complaint: Chest Pain Stated complaint: chest pain, sob, dizzy Time Seen by Provider: 04/19/21 17:27 Source: patient Mode of arrival: ambulatory Limitations: no limitations History of Present Illness Provider complaint: sob, chest pain, fatigue Onset (ago): week(s) 3 Location: chest Radiation: non-radiation Maximum Pain Intensity: 2 Current Pain Intensity: 2 Quality: + dull Relieved By: + none Exacerbated By: + movement Associated symptoms: + chest pain and + shortness of breath; no cough, no fever/chills or no nausea/vomiting Treatments prior to arrival: NSAID This is a 45-year-old female presents emergency department complaining of 3 weeks of evolving multiple symptoms. Patient recently began with fatigue, then began noticing shortness of breath and chest tightness. States the chest tightness is constant, however is worse with exertion and with laying flat. Patient also notes she has shortness of breath with exertion. No recent cough or URI symptoms. She states she has intermittently had low-grade fevers, no chills. Patient states the beginning of January she had hip surgery by Dr. Borges. States she did perform PT and had her follow-up visit and felt she was doing well. No recent lower extremity edema. She denies any calf tenderness. Patient does have history of rheumatoid arthritis, mid March she was having some increased hip pain and saw orthopedics again and they gave her a Medrol Dosepak which did help with the pain but did not affect any of her additional symptoms. Patient states she has periodically checked her heart rate and pulse ox at home with a home pulse oximeter as well as her apple watch. She states she has seen the pulse ox dropped into the upper 80s several times and with exertion becomes very tachycardic. Pt seen during a time of high acuity and national emergency pandemic while wearing PPE. Home Medications Medication Instructions Recorded Confirmed Type folic acid 1 mg tablet 1 mg PO QAM 11/25/18 04/19/21 History hydroxychloroquine 200 mg tablet 400 mg PO HS 11/25/18 04/19/21 History (Plaquenil) albuterol sulfate 90 mcg/actuation 2 puff INHALATION QID PRN 12/19/19 04/19/21 History aerosol inhaler (Ventolin HFA) ipratropium 0.5 mg-albuterol 3 mg 3 ml INH Q6H PRN #90 ml 12/20/19 04/19/21 Rx (2.5 mg base)/3 mL nebulization soln upadacitinib 15 mg tablet,extended 15 mg PO QDD 09/16/20 04/19/21 History release 24 hr (Rinvoq) Dottera Allergy 1 tab PO QAM PRN 01/21/21 04/19/21 History multivitamin 1 tab PO QAM 01/21/21 04/19/21 History vitamin A-vitamin C-vit E-min 1 tab PO QAM 04/19/21 04/19/21 History tablet Allergies Allergy/AdvReac Type Severity Reaction Status Date / Time tuberculin, purified protein Allergy Severe RASH Verified 04/19/21 18:24 deriva codeine Allergy Intermediate HIVES Verified 04/19/21 18:18 egg Allergy Intermediate HIVES Verified 04/19/21 18:18 latex Allergy Intermediate Hives Verified 04/19/21 18:18 morphine Allergy Intermediate HIVES Verified 04/19/21 18:18 ondansetron Allergy Intermediate HIVES Verified 04/19/21 18:18 oxycodone Allergy Intermediate HIVES Verified 04/19/21 18:18 sulfamethoxazole Allergy Intermediate hives Verified 04/19/21 18:18 trimethoprim Allergy Intermediate hives Verified 04/19/21 18:18 Bactrim Allergy Unknown hives Verified 02/23/18 11:08 Past Med/Surg History Medical History GERD (gastroesophageal reflux disease) MILD History of kidney stones Hx of endometriosis Lumbar stenosis with neurogenic claudication (08/05/14) s/p lumbar fusion Morbid obesity Osteoarthritis Post traumatic stress disorder HX OF Rheumatoid arthritis Surgical History Family history of reaction to anesthesia MOTHER-NAUSEA H/O foot surgery LEFT "FLAT FOOT" REPAIR H/O wrist surgery RT H/O: hysterectomy History of arthroscopy RT KNEE RT SHOULDER History of cholecystectomy History of colonoscopy History of esophagogastroduodenoscopy (EGD) History of laparoscopy History of lumbar fusion History of open reduction and internal fixation (ORIF) procedure RT HUMERUS Nausea and vomiting after administration of anesthetic agent S/P hardware removal FROM SURGERY [place] teeth removed Family History Grandfather (Paternal) Family history of diabetes mellitus Father Family history of diabetes mellitus Other No significant family history Social History Smoking Status: Never smoker Second Hand Exposure: Yes ( A CHILD); Hx Alcohol Use: Yes Alcohol type: wine Hx Substance Use: No Preferred Language: Danish Communication Ability: Effective French Professor Required: No Beliefs That Will Affect Care: None marital status: Current Living Situation: Spouse Other Information That Helps Us Care for You: No Feels Safe at Home: Yes Safety Concerns: Feels Safe At This Time Assistive Devices: Walker Review of Systems A total of 10 systems reviewed and were otherwise negative All systems reviewed & are unremarkable except as noted in HPI & below Physical Exam Vital Signs Vital Signs - 24 hr 04/19/21 21:45 04/19/21 22:00 Pulse Rate from SpO2 Sensor 66 70 Blood Pressure 126/80 148/85 H Blood Pressure Mean 95 106 Pulse Oximetry 99 100 Oxygen Delivery Method Room Air Room Air GENERAL: alert, well appearing, well nourished, no distress, non-toxic, BMI>40 EYE EXAM: normal conjunctiva, PERRL and EOM's grossly intact OROPHARYNX: no exudate, no erythema, lips, buccal mucosa, and tongue normal and mucous membranes are moist NECK: supple, no nuchal rigidity, no adenopathy, non-tender LUNGS: Clear to auscultation. Normal chest wall mechanics, no w/r/r HEART: no murmurs, S1 normal and S2 normal, no reproducible chest pain with palpation. ABDOMEN: abdomen soft, non-tender, normo-active bowel sounds, no masses, no rebound or guarding. BACK: Back is symmetrical on inspection and there is no deformity, no midline tenderness, no CVA tenderness. SKIN: no rashes and no bruising UPPER EXTREMITIES: upper extremities are grossly normal. FROM, nml pulses b/l. LOWER EXTREMITIES: No pitting edema. Slight asymmetry noted to the distal lower extremities with left being greater than right, patient states this is chronic and she has had prior injury to the left foot and ankle. FROM, nml pulses b/l. No calf tenderness bilaterally. NEURO EXAM: Normal sensorium, cranial nerves II-XII grossly intact, normal speech, no gross weakness of arms, no gross weakness of legs. Gross sensation intact. Course Course 1934: Patient and family updated on results at bedside. No change in patient's condition. We did discuss options for imaging including x-ray versus CAT scan. Patient did have an outpatient chest x-ray last week that was reported to her as normal. 2101: Patient updated on additional results. We will try ambulatory pulse ox. 2119: Was standing at bedside patient became lightheaded and appeared slightly more tachypneic again. Patient ambulated to the bathroom, and immediately dropped to 88% with heart rate into the 130s and obvious tachypnea. Administered Medications Discontinued Medications Acetaminophen (Acetaminophen 325 Mg Tab) 650 mg PO Q4H PRN PRN Reason: Pain or Fever Stop: 05/20/21 01:16 Last Admin: 04/20/21 10:39 Dose: 650 mg Documented by: [id number] Admin: 04/20/21 01:58 Dose: 650 mg Documented by: [id number] Folic Acid (Folic Acid 1 Mg Tab) 1 mg PO QAM FELISHA Stop: 05/20/21 08:59 Last Admin: 04/20/21 08:22 Dose: 1 mg Documented by: [id number] Sodium Chloride (Nss 1000ml) 1,000 mls @ 125 mls/hr IV .Q8H FELISHA Stop: 05/19/21 17:59 Last Admin: 04/20/21 10:34 Dose: Not Given Documented by: [id number] Infusion: 04/20/21 10:34 Dose: 0 mls/hr Documented by: [id number] Admin: 04/20/21 01:58 Dose: 125 mls/hr Documented by: [id number] Infusion: 04/20/21 01:58 Dose: 125 mls/hr Documented by: [id number] Admin: 04/19/21 18:29 Dose: 125 mls/hr Documented by: [id number] Acetaminophen (Ofirmev) 1,000 mg in 100 mls @ 400 mls/hr IV NOW STA Stop: 04/19/21 18:59 Last Infusion: 04/19/21 19:24 Dose: 0 mls/hr Documented by: [id number] Admin: 04/19/21 18:59 Dose: 400 mls/hr Documented by: [id number] Ioversol (Optiray 320 125ml) 120 ml IV ONCE ONE Stop: 04/19/21 20:18 Last Admin: 04/19/21 20:18 Dose: 120 ml Documented by: [id number] Miscellaneous (*Rinvoq*Order Awaiting Action) 1 ea N/A QS FELISHA Stop: 05/20/21 07:59 Last Admin: 04/20/21 15:16 Dose: Not Given Documented by: [id number] Admin: 04/20/21 08:21 Dose: Not Given Documented by: [id number] Multivitamins (Multivitamin Tab) 1 tab PO QAM FELISHA Stop: 05/20/21 08:59 Last Admin: 04/20/21 08:22 Dose: 1 tab Documented by: [id number] Multivitamins/Minerals (Cerovite Adv Formula Tab) 1 tab PO QAM FELISHA; Protocol Stop: 05/20/21 08:59 Last Admin: 04/20/21 08:22 Dose: 1 tab Documented by: [id number] Medical Decision Making Differential Diagnosis Differential diagnoses includes but is not limited to acute coronary syndrome, myocardial infarction, pericarditis, pulmonary embolus, aortic dissection, pneumonia, pneumothorax, musculoskeletal, shingles, esophageal. Medical Records Attestation: I reviewed the patient's medical records. Home Medications Current Medication List: was personally reviewed by me Laboratory Data Attestation: I reviewed the patient's lab results. Result diagrams: 04/20/21 07:06 04/20/21 07:06 Lab Results 04/19/21 04/19/21 04/19/21 Range/Units 17:43 17:43 17:43 WBC 11.97 H (4.8-10.8) K/uL RBC 4.62 (4.2-5.4) M/uL Hgb 14.8 (12.0-16.0) g/dL Hct 44.1 (37-47) % MCV 95.5 (80-100) fL MCH 32.0 (25-34) pg MCHC 33.6 (32-36) g/dL RDW Std Deviation 45.6 (36.4-46.3) fL RDW Coeff of Dk 13.1 (11.5-14.5) % Plt Count 300 (130-400) K/uL MPV 10.7 H (7.4-10.4) fL Immature Gran % (Auto) 0.2 % Neut % (Auto) 72.9 % Lymph % (Auto) 19.3 % Power % (Auto) 6.9 % Eos % (Auto) 0.5 % Baso % (Auto) 0.2 % Neut # (Auto) 8.74 H (1.4-6.5) K/uL Lymph # (Auto) 2.31 (1.2-3.4) K/uL Power # (Auto) 0.82 H (0.11-0.59) K/uL Eos # (Auto) 0.06 (0-0.5) K/uL Baso # (Auto) 0.02 (0-0.2) K/uL Immature Gran # (Auto) 0.02 (0.00-0.02) K/uL D-Dimer 380 (0-500) ug/L FEU Sodium 139 (136-145) mmol/L Potassium 3.9 (3.5-5.1) mmol/L Chloride 109 H (98-107) mmol/L Carbon Dioxide 24 (21-32) mmol/L Anion Gap 6.0 (3-11) BUN 17 (7-18) mg/dl Creatinine 0.72 (0.6-1.2) mg/dl Est Cr Clr Drug Dosing 113.7 ml/min Est GFR ( Amer) 117.2 ml/min Est GFR (Non-Af Amer) 101.1 ml/min BUN/Creatinine Ratio 24.0 H (10-20) Glucose 83 (70-99) mg/dl Calcium 9.2 (8.5-10.1) mg/dl Magnesium 2.4 (1.8-2.4) mg/dl Total Bilirubin 0.4 (0.2-1) mg/dl AST 21 (15-37) U/L ALT 31 (12-78) U/L Alkaline Phosphatase 82 (45-117) U/L Troponin I < 0.015 (0-0.045) ng/ml NT-Pro-B Natriuret Pep (0-450) pg/ml Total Protein 8.4 H (6.4-8.2) gm/dl Albumin 4.1 (3.4-5.0) gm/dl Globulin 4.3 H (2.5-4.0) gm/dl Albumin/Globulin Ratio 1.0 (0.9-2) Lipase 219 (73-393) U/L TSH 1.230 (0.300-4.500) uIu/ml HCG, Qual (Negative) Specimen Hemolysis Lyme Disease IgG Ab (Negative) Lyme Disease IgM Ab (Negative) COVID-19 Eval Order SARS-CoV-2 (PCR) (Negative) 04/19/21 04/19/21 04/19/21 Range/Units 17:43 17:43 22:30 WBC (4.8-10.8) K/uL RBC (4.2-5.4) M/uL Hgb (12.0-16.0) g/dL Hct (37-47) % MCV (80-100) fL MCH (25-34) pg MCHC (32-36) g/dL RDW Std Deviation (36.4-46.3) fL RDW Coeff of Dk (11.5-14.5) % Plt Count (130-400) K/uL MPV (7.4-10.4) fL Immature Gran % (Auto) % Neut % (Auto) % Lymph % (Auto) % Power % (Auto) % Eos % (Auto) % Baso % (Auto) % Neut # (Auto) (1.4-6.5) K/uL Lymph # (Auto) (1.2-3.4) K/uL Power # (Auto) (0.11-0.59) K/uL Eos # (Auto) (0-0.5) K/uL Baso # (Auto) (0-0.2) K/uL Immature Gran # (Auto) (0.00-0.02) K/uL D-Dimer (0-500) ug/L FEU Sodium (136-145) mmol/L Potassium (3.5-5.1) mmol/L Chloride (98-107) mmol/L Carbon Dioxide (21-32) mmol/L Anion Gap (3-11) BUN (7-18) mg/dl Creatinine (0.6-1.2) mg/dl Est Cr Clr Drug Dosing ml/min Est GFR ( Amer) ml/min Est GFR (Non-Af Amer) ml/min BUN/Creatinine Ratio (10-20) Glucose (70-99) mg/dl Calcium (8.5-10.1) mg/dl Magnesium (1.8-2.4) mg/dl Total Bilirubin (0.2-1) mg/dl AST (15-37) U/L ALT (12-78) U/L Alkaline Phosphatase (45-117) U/L Troponin I (0-0.045) ng/ml NT-Pro-B Natriuret Pep 65 (0-450) pg/ml Total Protein (6.4-8.2) gm/dl Albumin (3.4-5.0) gm/dl Globulin (2.5-4.0) gm/dl Albumin/Globulin Ratio (0.9-2) Lipase (73-393) U/L TSH (0.300-4.500) uIu/ml HCG, Qual Negative (Negative) Specimen Hemolysis Lyme Disease IgG Ab Negative (Negative) Lyme Disease IgM Ab Negative (Negative) COVID-19 Eval Order Covid19 at [facility] SARS-CoV-2 (PCR) (Negative) 04/19/21 Range/Units 22:30 WBC (4.8-10.8) K/uL RBC (4.2-5.4) M/uL Hgb (12.0-16.0) g/dL Hct (37-47) % MCV (80-100) fL MCH (25-34) pg MCHC (32-36) g/dL RDW Std Deviation (36.4-46.3) fL RDW Coeff of Dk (11.5-14.5) % Plt Count (130-400) K/uL MPV (7.4-10.4) fL Immature Gran % (Auto) % Neut % (Auto) % Lymph % (Auto) % Power % (Auto) % Eos % (Auto) % Baso % (Auto) % Neut # (Auto) (1.4-6.5) K/uL Lymph # (Auto) (1.2-3.4) K/uL Power # (Auto) (0.11-0.59) K/uL Eos # (Auto) (0-0.5) K/uL Baso # (Auto) (0-0.2) K/uL Immature Gran # (Auto) (0.00-0.02) K/uL D-Dimer (0-500) ug/L FEU Sodium (136-145) mmol/L Potassium (3.5-5.1) mmol/L Chloride (98-107) mmol/L Carbon Dioxide (21-32) mmol/L Anion Gap (3-11) BUN (7-18) mg/dl Creatinine (0.6-1.2) mg/dl Est Cr Clr Drug Dosing ml/min Est GFR ( Amer) ml/min Est GFR (Non-Af Amer) ml/min BUN/Creatinine Ratio (10-20) Glucose (70-99) mg/dl Calcium (8.5-10.1) mg/dl Magnesium (1.8-2.4) mg/dl Total Bilirubin (0.2-1) mg/dl AST (15-37) U/L ALT (12-78) U/L Alkaline Phosphatase (45-117) U/L Troponin I (0-0.045) ng/ml NT-Pro-B Natriuret Pep (0-450) pg/ml Total Protein (6.4-8.2) gm/dl Albumin (3.4-5.0) gm/dl Globulin (2.5-4.0) gm/dl Albumin/Globulin Ratio (0.9-2) Lipase (73-393) U/L TSH (0.300-4.500) uIu/ml HCG, Qual (Negative) Specimen Hemolysis Lyme Disease IgG Ab (Negative) Lyme Disease IgM Ab (Negative) COVID-19 Eval Order SARS-CoV-2 (PCR) NEGATIVE (Negative) Imaging Data Radiologist's Impression: Chest CTA 04/19/21 19:42 CT ANGIOGRAM OF THE CHEST CLINICAL HISTORY: Atypical chest pain. Possible acute pulmonary embolism COMPARISON STUDY: January 2016 TECHNIQUE: Following the IV administration of 120 mL of Optiray, CT angiogram of the thorax was performed from the thoracic inlet to the lung bases utilizing the pulmonary embolus protocol. Images are reviewed in the axial, sagittal, and coronal planes. IV contrast was administered without complication. MIP imaging was performed. A dose lowering technique was utilized adhering to the principles of ALARA. CT DOSE: 626.18 mGy.cm FINDINGS: No pathologically enlarged axillary mediastinal or hilar lymph nodes were visualized. There was no evidence of thoracic aortic dilatation. There were no pulmonary artery filling defects to indicate acute pulmonary embolism. No pleural effusions are visualized. There is a small pleural-based opacity at the right lung base, statistically atelectatic. IMPRESSION: 1. No evidence of acute pulmonary embolism 2. No evidence of pneumonia 3. No evidence of pneumothorax ACT 112: Negative or not required by law. Electronically signed by: Biju Ignacio M.D. 04/19/2021 8:43 PM ECG Data Attestation: I personally reviewed and interpreted this ECG as follows: Indication: + chest pain and + SOB/dyspnea Rate (beats per minute): 68 Rhythm: + normal sinus ECG Intervals/blocks: + Normal QRS and + Normal QT ECG [place]: + Normal ECG ST segments: + Normal ST segments MDM Narrative This is a well-appearing 45-year-old who presents with worsening symptoms of shortness of breath and chest pain particular with exertion. Patient has 10 weeks out following a hip surgery and felt she had been recovering well, completed physical therapy, and was hopeful to return to employment when symptoms started to worsen. Patient states symptoms initially intermittent, however over the course of the week had become more severe and more frequent. Patient was afebrile and hemodynamically stable here, well-appearing at rest with no obvious respiratory distress or hypoxia. After significant discussion at bedside, labs drawn and sent, EKG performed, and patient sent for imaging. Patient had an outpatient chest x-ray, and we opted for CT angiography. No PE or other acute abnormality was noted. Patient was given some medication for the discomfort in her chest. However, upon attempt at ambulatory trial patient unable to walk to the bathroom approximately 5-6 steps without heart rate jumping in the 130s and pulse ox dropping into the mid to upper 80s with significant shortness of breath and recurrent symptoms. While patient has a low risk heart score and reassuring CTA, I feel additional inpatient evaluation is best. Patient verbalized understanding of all results and was in agreement with plan as she is concerned for her persistent symptoms with no clear etiology. Case discussed with hospitalist for additional evaluation and management. An order was placed for continuous cardiac monitoring. The monitor shows a rate of _72_ with _normal sinus_ rhythm. Impression & Plan Atypical chest pain, Dyspnea Discharge Plan Visit Data Chief Complaint: Chest Pain Stated Complaint: chest pain, sob, dizzy ED Provider: Zakia Ching Discharge Problem: Atypical chest pain, Dyspnea Patient Disposition: Admitted As Inpatient Condition: Good Discharge Instructions Interventions: ED Discharge Assessment Last Done: 04/20/21 00:40 Discharge Problem: Dyspnea Qualifiers: Dyspnea type: shortness of breath Qualified Code(s): R06.02 - Shortness of breath
[2021-04-19] MEDS ORDERED: ACETAMINOPHEN 1,000 MG/100 ML VIAL IV STA (18:45)
[2021-04-19 18:59] LABS: Pregnancy Test, Serum Negative (Negative)
[2021-04-19 20:03] LABS: Lyme Ab IgG w/WB Rflx Negative (Negative); Lyme Ab IgM w/WB Rflx Negative (Negative)
[2021-04-19] MEDS ORDERED: OPTIRAY 320 125ml IV ONE (20:17)
--- NOTE | 2021-04-19 20:44 | CT Scan Report ---
CT ANGIOGRAM OF THE CHEST CLINICAL HISTORY: Atypical chest pain. Possible acute pulmonary embolism COMPARISON STUDY: January 2016 TECHNIQUE: Following the IV administration of 120 mL of Optiray, CT angiogram of the thorax was perfo rmed from the thoracic inlet to the lung bases utilizing the pulmonary embolus protocol. Images are r eviewed in the axial, sagittal, and coronal planes. IV contrast was administered without complication . MIP imaging was performed. A dose lowering technique was utilized adhering to the principles of [place]. CT DOSE: 626.18 mGy.cm FINDINGS: No pathologically enlarged axillary mediastinal or hilar lymph nodes were visualized. There was no evidence of thoracic aortic dilatation. There were no pulmonary artery filling defects to indicate acute pulmonary embolism. No pleural effusions are visualized. There is a small pleural-based opacity at the right lung base, statistically atelectatic. IMPRESSION: 1. No evidence of acute pulmonary embolism 2. No evidence of pneumonia 3. No evidence of pneumothorax ACT 112: Negative or not required by law. Electronically signed by: Biju Ignacio M.D. 04/19/2021 8:43 PM
--- NOTE | 2021-04-19 22:29 | History & Physical Report ---
Date of Service April 19, 2021 Assessment & Plan (1) Atypical chest pain: Plan: Gia is a 45-year-old female with a notable past medical history of rheumatoid arthritis on upadacitinib (Rinvoq) and HCQ, as well as recent R hip labral repair surgery, who presented to [facility] at the recommendation of her primary care physician for increasing fatigue, intermittent chest pain, lightheadedness, and positionally related shortness of breath. Etiology at this time is unclear. Shortness of Breath, Lightheadedness * Positionally-related shortness of breath, similar to PND and orthopnea based on symptom description, that also results in desaturations to high 80s with minimal exertion * Given +CP and ongoing +lightheadedness associated with activity -- certainly concern for cardiogenic vs. pulmonic (eg Pulm HTN) vs. ?vascular source. --> also considered: possible rheumatologic lung disease? CTA-Chest not demonstrating fibrotic changes --> Lower concern for infectious process, although patient is immunocomprom ised * ECG without significant conduction or repolarization abnormalities. Troponin negative. BNP negative. No evidence of PE, PNA, PNX. Lyme negative. * Will order TTE w/ Bubble Study for further evaluation * AM Cortisol - screen for adrenal insufficiency. If demonstrating pathologic low, can consider stress-dose steroids * Pending results of TTE - can consider further central vascular imaging p.r.n. * Order orthostatics * CBC, CMP in AM Chest Pain * Unclear etiology at present -- seems less likely to be coronary hypoperfusion, but considered * CTA-PE negative for PE * Evaluate for pericarditis / pHTN in setting of other symptoms above, alongside rheumatologic disease - echocardiography * Also consider MSK as possibility * Trend troponins -- otherwise as above Rheumatoid Arthritis * Continue home medications - HCQ, Rinvoq * No acute needs at present Dispo: MS/Tele Diet: Regular PPX: SCDs Code: Full code (2) Dyspnea: (3) Acute abdominal pain: (4) DVT prophylaxis: (5) Tachycardia: (6) Acute bronchitis: History of Present Illness Primary Care Provider: Salome Esquivel MD This is a 45-year-old female with a notable past medical history of rheumatoid arthritis on upadacitinib (Rinvoq) and HCQ, as well as recent R hip labral repair surgery, who presented to [facility] at the recommendation of her primary care physician for increasing fatigue, remittent chest pain, lightheadedness, and positionally related shortness of breath. Gia tells me that back in the end of March, she noticed that she was feeling more fatigueat the time she did not think much of it, because she was going back to work, doing PT's after her recent hip surgery. Soon thereafter though, she felt like she could not keep upshe felt exhausted much easier by exertion, felt like she had much more difficulty waking up. Around this time, the end of March, she was also endorsing mild, low-grade temperatures ranging from 99.2- 100.3. Over the succeeding weeks, she noted that her symptoms became worse. She noted that she would become lightheaded very easily with any positional changessuch as standing up. However, the lightheadedness would persist as long as she was standing, would get worse with walking faster. It never got to the point where she felt her vision was going out that she was going to pass out. Even after sitting down to rest, would persist for about 30 minutes. She endorsed feeling symptoms of nausea and "feeling awful" after exertion. Along the same timeline, she began to notice some exertionally related chest pain as well. She said that it felt "sharp" and was mostly substernal. She cannot recreate it by pressing on it. She said that the chest pain was mostly only relieved by sitting upright and resting. Further, along this time, she does note that she has had increased shortness of breath. It is certainly present with exertion, but also notices that it is positionally relatedshe endorses orthopnea (having to prop herself up with several pillows each night) as well as paroxysmal nocturnal dyspnea (wake up in the middle the night short of breath, feeling like she has to just). She denies any recent fevers or elevated temperatures within the last several weeks. Denies any chills night sweats. Denies any regular nausea, vomiting, diarrhea. Bowel movements are normal. No urinary symptoms. No numbness or tingling. No discrete weakness in either of her arms or legs. Regarding her family history, she does endorse history of a heart attack in her father at 57, as well as strokes as well. Said that he had carotid stenosis. No history of early coronary disease otherwise. No history of other cardiac disease. Socially, she denies any regular use of alcohol, tobacco, or recreational drugs. In the ED, patient did undergo labs and imaging to work-up further causes of her symptoms. Her troponin was negative. BNP was negative. ECG did not demonstrate any repolarization conduction abnormalities. CTA of the chest was unremarkable for PE, pneumothorax or pneumonia. Allergies Allergy/AdvReac Type Severity Reaction Status Date / Time tuberculin, purified protein Allergy Severe RASH Verified 04/19/21 18:24 deriva codeine Allergy Intermediate HIVES Verified 04/19/21 18:18 egg Allergy Intermediate HIVES Verified 04/19/21 18:18 latex Allergy Intermediate Hives Verified 04/19/21 18:18 morphine Allergy Intermediate HIVES Verified 04/19/21 18:18 ondansetron Allergy Intermediate HIVES Verified 04/19/21 18:18 oxycodone Allergy Intermediate HIVES Verified 04/19/21 18:18 sulfamethoxazole Allergy Intermediate hives Verified 04/19/21 18:18 trimethoprim Allergy Intermediate hives Verified 04/19/21 18:18 Bactrim Allergy Unknown hives Verified 02/23/18 11:08 Home Medications Medication Instructions Recorded Confirmed Type folic acid 1 mg tablet 1 mg PO QAM 11/25/18 04/19/21 History hydroxychloroquine 200 mg tablet 400 mg PO HS 11/25/18 04/19/21 History (Plaquenil) albuterol sulfate 90 mcg/actuation 2 puff INHALATION QID PRN 12/19/19 04/19/21 History aerosol inhaler (Ventolin HFA) ipratropium 0.5 mg-albuterol 3 mg 3 ml INH Q6H PRN #90 ml 12/20/19 04/19/21 Rx (2.5 mg base)/3 mL nebulization soln upadacitinib 15 mg tablet,extended 15 mg PO QDD 09/16/20 04/19/21 History release 24 hr (Rinvoq) Dottera Allergy 1 tab PO QAM PRN 01/21/21 04/19/21 History multivitamin 1 tab PO QAM 01/21/21 04/19/21 History vitamin A-vitamin C-vit E-min 1 tab PO QAM 04/19/21 04/19/21 History tablet Past Med/Surg History Medical History GERD (gastroesophageal reflux disease) MILD History of kidney stones Hx of endometriosis Lumbar stenosis with neurogenic claudication (08/05/14) s/p lumbar fusion Morbid obesity Osteoarthritis Post traumatic stress disorder HX OF Rheumatoid arthritis Surgical History Family history of reaction to anesthesia MOTHER-NAUSEA H/O foot surgery LEFT "FLAT FOOT" REPAIR H/O wrist surgery RT H/O: hysterectomy History of arthroscopy RT KNEE RT SHOULDER History of cholecystectomy History of colonoscopy History of esophagogastroduodenoscopy (EGD) History of laparoscopy History of lumbar fusion History of open reduction and internal fixation (ORIF) procedure RT HUMERUS Nausea and vomiting after administration of anesthetic agent S/P hardware removal FROM SURGERY [place] teeth removed Family History Grandfather (Paternal) Family history of diabetes mellitus Father Family history of diabetes mellitus Other No significant family history Social History Smoking Status: Never smoker Second Hand Exposure: Yes ( A CHILD); Hx Alcohol Use: Yes Alcohol type: wine Hx Substance Use: No Preferred Language: [place]araguan Communication Ability: Effective Devops Engineer Required: No Beliefs That Will Affect Care: None marital status: Current Living Situation: Spouse Other Information That Helps Us Care for You: No Feels Safe at Home: Yes Safety Concerns: Feels Safe At This Time Assistive Devices: Walker Review of Systems Review of Systems: As per HPI Physical Exam Physical Exam: General: Tired, but well-appearing 45-year-old female is lying back in her hospital bed, relaxed upon my arrival. She converses freely and is no acute distress. HEENT: NCAT. Eyes - Sclera are white, anicteric, and without injection. PERRL. EOMs display full ROM bilaterally. Mouth - MMM with no tonsillar edema or exudates. Nose - nasal turbinates are uninflamed and without discharge. Ears - External ears appears healthy b/l with no erythema or rashes; TMs displayed white reflex b/l and are non-bulging, uninflamed, and reveal no signs of fluid accumulation. Neck - supple and without LAD. No appreciable jugular venous distention. Auscultation of the carotids does reveal transmission of cardiac sounds, more prominent on the left compared to the right; no obvious bruits. Cardiac: Normal rate and regular rhythm; S1 and S2 present with no murmurs, rubs, or gallops. Valsalva does not make significant changes to heart sounds. Pulmonary: Good respiratory effort with symmetric expansion of the chest. No use of accessory muscles. Lungs were clear to auscultation bilaterally with no crackles or wheezes. Abdominal: Normoactive bowel sounds. Abdomen was soft, nondistended, and non- tender to palpation. No hepatomegaly or splenomegaly. Extremities: Upper and lower extremities are warm and well perfused. Trace peripheral edema in lower extremities b/l. Psych: Well-developed, well-nourished, appropriately dressed for occasion. Behavior is cooperative and appropriate. Affect is WNL. Insight is appropriate. Results & Data Results & Data ([facility]) Vital Signs (Past 12 Hours) Vital Signs Temp Pulse Pulse Pulse Resp Resp BP 04/19/21 22:00 148/85 H 04/19/21 21:45 126/80 04/19/21 21:30 126/76 04/19/21 21:15 143/82 H 04/19/21 20:50 130 H 25 H 04/19/21 20:45 64 19 122/77 04/19/21 20:30 64 118/68 04/19/21 20:28 69 13 04/19/21 20:00 68 14 120/76 04/19/21 19:45 73 22 122/73 04/19/21 19:31 73 20 129/95 04/19/21 19:00 70 22 132/69 04/19/21 18:45 68 20 04/19/21 18:30 122/70 04/19/21 18:15 72 22 115/73 04/19/21 18:00 65 20 118/69 04/19/21 17:45 68 18 125/75 04/19/21 17:39 65 17 04/19/21 16:21 36.8 C 74 18 132/86 BP Pulse Ox Pulse Ox 04/19/21 22:00 100 04/19/21 21:45 99 04/19/21 21:30 100 07/20/21 21:15 99 04/19/21 20:50 88 L 04/19/21 20:45 100 04/19/21 20:30 100 04/19/21 20:28 04/19/21 20:00 99 04/19/21 19:45 99 04/19/21 19:31 100 04/19/21 19:00 100 04/19/21 18:45 96 04/19/21 18:30 04/19/21 18:15 99 04/19/21 18:00 99 04/19/21 17:45 100 04/19/21 17:39 124/73 99 04/19/21 16:21 98 Supervising Physician Co-Signing Physician Notes Atypical chest pain/shortness of breath- The patient will be admitted to telemetry for serial cardiac enzymes, serial EKG's, cardiac rhythm monitoring and a 2-D echocardiogram with Dopplers. Follow orthostatic vital signs A.m. cortisol for adrenal insufficiency Assess for possible pericarditis/pleuritis/rheumatoid lung disease Rheumatoid arthritis- Continue hydroxychloroquine, Rinvoq and folic acid Asthma- Hold Ventolin HFA Have available DuoNebs every 2 hours as needed Remaining orders and notations as noted Resident Activity Tracking Resident Involvement: Resident Care Provided Care Provided: Adult Hospital Medicine (1) Dyspnea Dyspnea type: shortness of breath Qualified Code(s): R06.02 - Shortness of breath (2) Acute bronchitis Bronchitis organism: unspecified organism Qualified Code(s): J20.9 - Acute bronchitis, unspecified
[2021-04-20] MEDS ORDERED: ALBUTEROL HFA 8 GM INHALER INH PRN (01:17)
[2021-04-20] MEDS ORDERED: ALBUT/IPRATROP 3MG/0.5MG NEB 3 ML VIAL INH PRN (01:17)
[2021-04-20] MEDS ORDERED: [UNRECOGNIZED DRUG - REMARK] PO PRN (01:17)
[2021-04-20] MEDS ORDERED: POLYETHYLENE (MIRALAX) 17 GM PACK PO PRN (01:17)
[2021-04-20] MEDS: ACETAMINOPHEN 325 MG TAB PO PRN ×2 (01:58→10:39)
[2021-04-20] MEDS: SODIUM CHLORIDE 0.9% 1000ML 1,000 ML IV SCH ×2 (01:58→10:34)
[2021-04-20 07:21] LABS: Basophils # (auto) 0.02 K/uL (0-0.2); Basophils % (auto) 0.2 %; Eosinophils # (auto) 0.07 K/uL (0-0.5); Eosinophils % (auto) 0.8 %; Hematocrit (blood only) 39.3 % (37-47); Immature Granulocytes # (auto) 0.01 K/uL (0.00-0.02); Immature Granulocytes % (auto) 0.1 %; Lymphocytes # (auto) 2.12 K/uL (1.2-3.4); Lymphocytes % (auto) 22.9 %; Mean Corpuscular Hemoglobin 31.2 pg (25-34); Mean Corpuscular Hgb Conc 33.1 g/dL (32-36); Mean Corpuscular Volume 94.2 fL (80-100); Mean Platelet Volume 10.1 fL (7.4-10.4); Monocytes # (auto) 0.88 K/uL (0.11-0.59); Monocytes % (auto) 9.5 %; Neutrophils # (auto) 6.15 K/uL (1.4-6.5); Neutrophils % (auto) 66.5 %; Platelet Count 232 K/uL (130-400); RDW Coefficient of Variation 13.1 % (11.5-14.5); RDW Standard Deviation 45.1 fL (36.4-46.3); Red Blood Count 4.17 M/uL (4.2-5.4); White Blood Count 9.25 K/uL (4.8-10.8)
[2021-04-20 07:39] LABS: Estimated Average Glucose 114 mg/dl; Hemoglobin A1C 5.6 % (4.5-5.6)
[2021-04-20 08:02] LABS: Calcium 8.7 mg/dl (8.5-10.1); Creatinine Clr Calc Pharmacy 134.5 ml/min; Est GFR (African American) 126.9 ml/min; Est GFR (Non-African American) 109.5 ml/min; Potassium 3.8 mmol/L (3.5-5.1)
[2021-04-20] MEDS ORDERED: FOLIC ACID 1 MG TAB PO SCH (09:00)
[2021-04-20] MEDS ORDERED: CEROVITE ADV FORMULA TAB PO SCH (09:00)
[2021-04-20] MEDS ORDERED: MULTIVITAMIN TAB PO SCH (09:00)
--- NOTE | 2021-04-20 14:14 | XCELERA ---
[id number] \\[id number]
--- NOTE | 2021-04-20 16:06 | Electrocardiogram Report ---
Test Reason : Blood Pressure : / mmHG Vent. Rate : 068 BPM Atrial Rate : 068 BPM P-R Int : 154 ms QRS Dur : 100 ms QT Int : 410 ms P-R-T Axes : 022 -10 015 degrees QTc Int : 435 ms Normal sinus rhythm Minimal voltage criteria for LVH, may be normal variant Borderline ECG When compared with ECG of 24-JAN-2021 08:59, No significant change was found Confirmed by Binu Kimble ([id number]) on 04/20/2021 4:06:12 PM Referred By: Erickson Huynh Confirmed By:Binu Kimble
--- NOTE | 2021-04-20 16:16 | Discharge Summary ---
Date of Service April 20, 2021 Admission HPI Per Admitting Provider This is a 45-year-old female with a notable past medical history of rheumatoid arthritis on upadacitinib (Rinvoq) and HCQ, as well as recent R hip labral repair surgery, who presented to [facility] at the recommendation of her primary care physician for increasing fatigue, remittent chest pain, lightheadedness, and positionally related shortness of breath. Gia tells me that back in the end of March, she noticed that she was feeling more fatigueat the time she did not think much of it, because she was going back to work, doing PT's after her recent hip surgery. Soon thereafter though, she felt like she could not keep upshe felt exhausted much easier by exertion, felt like she had much more difficulty waking up. Around this time, the end of March, she was also endorsing mild, low-grade temperatures ranging from 99.2- 100.3. Over the succeeding weeks, she noted that her symptoms became worse. She noted that she would become lightheaded very easily with any positional changessuch as standing up. However, the lightheadedness would persist as long as she was standing, would get worse with walking faster. It never got to the point where she felt her vision was going out that she was going to pass out. Even after sitting down to rest, would persist for about 30 minutes. She endorsed feeling symptoms of nausea and "feeling awful" after exertion. Along the same timeline, she began to notice some exertionally related chest pain as well. She said that it felt "sharp" and was mostly substernal. She cannot recreate it by pressing on it. She said that the chest pain was mostly only relieved by sitting upright and resting. Further, along this time, she does note that she has had increased shortness of breath. It is certainly present with exertion, but also notices that it is positionally relatedshe endorses orthopnea (having to prop herself up with several pillows each night) as well as paroxysmal nocturnal dyspnea (wake up in the middle the night short of breath, feeling like she has to just). She denies any recent fevers or elevated temperatures within the last several weeks. Denies any chills night sweats. Denies any regular nausea, vomiting, diarrhea. Bowel movements are normal. No urinary symptoms. No numbness or tingling. No discrete weakness in either of her arms or legs. Regarding her family history, she does endorse history of a heart attack in her father at 57, as well as strokes as well. Said that he had carotid stenosis. No history of early coronary disease otherwise. No history of other cardiac disease. Socially, she denies any regular use of alcohol, tobacco, or recreational drugs. In the ED, patient did undergo labs and imaging to work-up further causes of her symptoms. Her troponin was negative. BNP was negative. ECG did not demonstrate any repolarization conduction abnormalities. CTA of the chest was unremarkable for PE, pneumothorax or pneumonia. Principal Diagnosis Dyspnea on exertion Discharge Exam Constitutional well developed, well nourished and comfortable; no acute distress Eyes PERRL, conjunctivae normal, anicteric sclerae Neck trachea midline, no thyromegaly Respiratory normal respiratory effort, lungs clear to auscultation Cardiovascular RRR, no murmur, no edema Gastrointestinal (Abdomen) normal bowel sounds, soft, nontender, no hepatosplenomegaly Musculoskeletal no cyanosis or clubbing, extremities motor strength 5/5 Skin no rashes, warm and dry Neurologic patellar DTR's 2+ bilat, sensation intact and PERRL, EOMI, accommodation nl, no face palsy, no dysarthria Psychiatric A+Ox3, euthymic affect Discharge Data Allergies Allergy/AdvReac Type Severity Reaction Status Date / Time tuberculin, purified protein Allergy Severe RASH Verified 04/19/21 18:24 deriva codeine Allergy Intermediate HIVES Verified 04/19/21 18:18 egg Allergy Intermediate HIVES Verified 04/19/21 18:18 latex Allergy Intermediate Hives Verified 04/19/21 18:18 morphine Allergy Intermediate HIVES Verified 04/19/21 18:18 ondansetron Allergy Intermediate HIVES Verified 04/19/21 18:18 oxycodone Allergy Intermediate HIVES Verified 04/19/21 18:18 sulfamethoxazole Allergy Intermediate hives Verified 04/19/21 18:18 trimethoprim Allergy Intermediate hives Verified 04/19/21 18:18 Bactrim Allergy Unknown hives Verified 02/23/18 11:08 Consultations 04/19/21 21:49 ED Decision to Admit Stat Ordered Studies 04/19/21 19:42 CT angio chest PE protocol Stat Hospital Course (1) Atypical chest pain: Gia is a 45-year-old female with a notable past medical history of rheumatoid arthritis on upadacitinib (Rinvoq) and HCQ, as well as recent R hip labral repair surgery, who presented to [facility] at the recommendation of her primary care physician for increasing fatigue, intermittent chest pain, lightheadedness, and positionally related shortness of breath. Etiology at this time is unclear. Shortness of Breath, Lightheadedness * ongoing issue, progressive dyspnea on exertion for the past few weeks, never had this issue before a few weeks ago echocardiogram shows preserved EF, no valve disease, no shunt, no pericarditis CT angiogram chest negative for pulmonary emboli, no pneumonia, no scarring no issues on tele while here, troponin negative no hypoxia, just dyspnea discussed with Dr. Fermin, doubtful that this is acute rheumatologic issue, she did not respond to a Medrol dose pack a few weeks ago he discussed with drug rep for Rinvoq, it is not known to cause pulmonary side effects next step would be referral to pulmonology as outpatient, get PFT she is agreeable to this plan I assured her that we ruled out several things and that she is safe at home as she is not hypoxic Chest Pain * Unclear etiology at present -- could be musculoskeletal * CTA-PE negative for PE * no signs of pericarditis on EKG, no pericardial changes on echocardiogram Rheumatoid Arthritis * Continue home medications - HCQ, Rinvoq * No acute needs at present * discussed case with Dr. Fermin, he does not suspect new issues are rheumatologic Dispo: MS/Tele Diet: Regular PPX: SCDs Code: Full code (2) Dyspnea: (3) Acute abdominal pain: (4) DVT prophylaxis: (5) Tachycardia: Total Time Total Time Spent Total Time Spent (In Minutes): 40 Discharge Plan Discharge Items Patient Disposition: Home - Self-Care Reason For Visit: SHORTNESS OF BREATH, CP Discharge Diagnosis: Dyspnea on exertion, unclear etiology no hypoxia Condition on Discharge: Good Goals: follow up with pulmonology Activity: Resume your previous activity Driving/Machine Use: No limitations Weightbearing: Full weightbearing Non-emergency contact: Primary Care Provider Call non-emergency contact if: you have any medication questions and your symptoms worsen Follow-up/Referrals: Arturo Resendiz MD [Physician] - (The Pulmonary office will call you tomorrow to schedule an appointment with them. They should be aware that your discharging Doctor would like the first available appointment and you will need PFT as well. Please make sure they are aware of this. If you do not hear from them within a day or two, please call scheduling at [phone] and they can transfer you to the office.) Salome Esquivel MD [Primary Care Provider] - 04/25/21 2:30 pm (one week) Diet: Regular Addtl Attending Provider Instructions: Medications: no changes Dyspnea on exertion: thorough work up with echocardiogram (normal) and CT angiogram of chest (no pulmonary embolism, normal lung tissue) no hypoxia while here and at home levels have been higher than 88% discussed with Dr. Fermin, he does not suspect that this is due to RA could be adverse effect from Rinvoq? Dr. Fermin reaching out to drug rep follow up with pulmonology for their opinion and pulmonary function testing Pending Studies at Discharge: No Stand-Alone Forms: [facility], Smoking Cessation Medications and DC Order Prescriptions: Continued folic acid 1 mg Tablet 1 mg PO QAM RF: 0 hydroxychloroquine [Plaquenil] 200 mg Tablet 400 mg PO HS RF: 0 albuterol sulfate [Ventolin HFA] 90 mcg/actuation HFA aerosol inhaler 2 puff INHALATION QID PRN (Reason: Shortness Of Breath Or Wheezing) RF: 0 ipratropium-albuterol 0.5 mg-3 mg(2.5 mg base)/3 mL solution for nebulization 3 ml INH Q6H PRN (Reason: shortness of breath or wheezing) Qty: 90 RF: 1 Rinvoq 15 mg Tablet Extended Release 24 Hr 15 mg PO QDD RF: 0 multivitamin Tablet 1 tab PO QAM RF: 0 Dottera Allergy 1 tab PO QAM PRN (Reason: ALLERGY RELIEF) RF: 0 vitamin A-vitamin C-vit E-min Tablet 1 tab PO QAM RF: 0 Discharge Orders: Discharge Order (Routine); Ordered 04/20/21 Ordered By: Sai Hamm Admission Data Admit Date/Time: 04/19/21 22:40 Attending Provider: Sai Hamm Admit Provider: Blade Islas Primary Care Provider: Salome Esquivel Other Providers: Luis Coleman Other Interventions: Discharge Summary Assessment (RN) Last Done: 04/20/21 16:43 Coding Level of Care Code 94806 OBS Care - Discharge Diagnoses Atypical chest pain R07.89 Dyspnea R06.02 Dyspnea type: shortness of breath Acute abdominal pain R10.9 DVT prophylaxis Z29.9 Tachycardia R00.0
--- NOTE | 2021-04-20 19:57 | Billing Data ---
Date of Service April 20, 2021 Coding Level of Care Code INT OBSERVATION CARE 70M LVL 3
[2021-04-20] MEDS ORDERED: HYDROXYCHLOROQUINE SULFATE 200 MG TAB PO SCH (21:00)
== END 2021-04-20 17:38 | disposition home or self-care (01) ==
LOC: 2N 16:17 → ED 16:17 → SUATTDRO 22:40 → 2N 04-20 00:40